=== PATIENT | male | born 1935 | race Caucasian/White ===

== ENCOUNTER 2018-03-23 13:52 | Outpatient (CLI) | payer MEDICARE, SELFPAY ==
[2018-03-23 14:31] LABS: Abs Immature Grans 0.01 k/cumm (0.0-0.09); Absolute Basophil Count 0.04 k/cumm (0.0-0.2); Absolute Eosinophil Count 0.32 k/cumm (0.0-0.7); Absolute Lymphocyte Count 2.04 k/cumm (1.2-3.4); Absolute Monocyte Count 0.54 k/cumm (0.11-0.7); Absolute Neutrophil Count 4.83 k/cumm (1.2-6.7); Basophils % 0.5; Eosinophils % 4.1; HCT 40.7 % (40.0-50.0); HGB 13.7 g/dL (13.5-17.5); Immature Grans % 0.1; Lymphocytes % 26.2; Mean Corp. HGB Concentration 33.7 g/dL (32.0-36.0); Mean Corpuscular Hemoglobin 29.4 pg (27.0-33.0); Mean Corpuscular Volume 87.3 fL (80-95); Mean Platelet Volume 10.5 fL (8.0-11.0); Monocytes % 6.9; Neutrophils % 62.2; Platelet Count 221 x1000/uL (130-400); RBC 4.66 m/cumm (4.50-6.00); RBC Distribution Width 13.1 % (11.8-14.1); White Blood Cell Count 7.78 k/cumm (4.4-10.8)
[2018-03-23 14:43] LABS: ALT 40 U/L (12-78); AST 23 U/L (15-37); Albumin 3.6 g/dL (3.4-5.0); Alkaline Phosphatase 70 U/L (46-116); BUN 21 mg/dL (7-18); Bilirubin, Total 0.4 mg/dL (0.2-1.0); CREATININE 1.03 mg/dL (0.70-1.30); Calcium 8.9 mg/dL (8.5-10.1); Chloride 101 mmol/L (98-107); Glucose 141 mg/dL (70-100); LDH 171 U/L (85-227); Potassium 4.2 mmol/L (3.5-5.1); Sodium 137 mmol/L (136-145); Total Protein 6.7 g/dL (6.4-8.2)
== END 2018-03-23 14:12 ==
PROVIDERS: PCP Family Medicine; Visit Provider Internal Medicine Hematology & Oncology
DX: C85.80 Other specified types of non-Hodgkin lymphoma, unspecified site (principal)
CPT/HCPCS: 36415; 80053; 83615; 85025

== ENCOUNTER 2018-05-15 07:32 | Outpatient (CLI) | payer MEDICARE, SELFPAY ==
[2018-05-15 08:15] LABS: Hemoglobin A1C 7.5 % (4.5-6.2)
[2018-05-15 09:35] LABS: COMMENT (LAB VIEW ONLY) 142.46 mg/dL; Microalb ug/mg Crea 9.2 ug/mg Cr
[2018-05-15 09:39] LABS: ALT 32 U/L (12-78); AST 20 U/L (15-37); Albumin 3.8 g/dL (3.4-5.0); Alkaline Phosphatase 72 U/L (46-116); Anion Gap 11.4 mmol/L (3-11); BUN 25 mg/dL (7-18); Bilirubin, Total 0.4 mg/dL (0.2-1.0); CO2 25.6 mmol/L (21.0-32.0); CREATININE 1.23 mg/dL (0.70-1.30); Calcium 9.1 mg/dL (8.5-10.1); Chloride 106 mmol/L (98-107); Estimated GFR 56.48 (mL/min/1.73m2); Glucose 93 mg/dL (70-100); Potassium 4.3 mmol/L (3.5-5.1); Sodium 143 mmol/L (136-145); Total Protein 6.5 g/dL (6.4-8.2)
== END 2018-05-15 07:52 ==
PROVIDERS: PCP Family Medicine; Visit Provider Family Medicine
DX: E11.9 Type 2 diabetes mellitus without complications (principal); I10 Essential (primary) hypertension
CPT/HCPCS: 36415; 80053; 82043; 82570; 83036

== ENCOUNTER 2018-09-18 02:17 | Outpatient (CLI) | payer MEDICARE, SELFPAY ==
--- NOTE | 2018-09-18 10:30 | MERGE_ITS ---
*[facility]* *[facility]* [address] [place] [address] Date of study: 09/18/2018 Transthoracic Echocardiography M-mode, complete 2D, complete spectral Doppler, and color Doppler *STUDY CONCLUSIONS* Summary: 1. Left ventricle: The cavity size was normal. Wall thickness was increased in a pattern of mild LVH. Systolic function was normal. The estimated ejection fraction was 60-65%. Wall motion was normal; there were no regional wall motion abnormalities. 2. Right ventricle: The cavity size was normal. Systolic function was normal. 3. Left atrium: The atrium was moderately dilated. 4. Aortic valve: Trileaflet; moderately thickened, moderately calcified leaflets. Valve mobility was restricted. Transvalvular velocity was increased. There was mild stenosis. There was trivial regurgitation. Peak velocity (S): 2.8m/sec. VTI ratio of LVOT to aortic valve: 0.4. *PATIENT PRESENTATION* Height: 182.9cm ((72in) ) S/D Pressure: 157 / 83 Weight: 98kg ((215.5lb) ) BSA: 2.25m^2 Test start time: 10:30 AM. Test stop time: 11:40 AM. PERFORMING Unknown ORDERING Andrew Moseley REFERRING Andrew Moseley Brigitte F PERFORMING [facility] PACKAGE SORTER RT González (R)(CT)ROXY *PROCEDURE DATA* Procedure information: The patient was identified by two identifiers. This study was interpreted by [facility]. Pertinent images and digital data are archived for permanent storage and are available for subsequent review. Comparison was made to the study of 07/17/2016. Study status: Routine. Transthoracic echocardiography. M-mode, complete 2D, complete spectral Doppler, and color Doppler. A Transthoracic Echocardiogram was performed. Scanning was performed from the parasternal, apical, subcostal, and suprasternal notch acoustic windows. Images were obtained using an [id number] cardiac ultrasound machine. Image quality was adequate. Study completion: The patient tolerated the procedure well. There were no complications. 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 *CARDIAC ANATOMY* Left ventricle: The cavity size was normal. Wall thickness was increased in a pattern of mild LVH. Systolic function was normal. The estimated ejection fraction was 60-65%. Wall motion was normal; there were no regional wall motion abnormalities. Findings consistent with diastolic dysfunction. There was no evidence of elevated ventricular filling pressure by Doppler parameters. Aortic valve: Trileaflet; moderately thickened, moderately calcified leaflets. Valve mobility was restricted. Doppler: Transvalvular velocity was increased. There was mild stenosis. There was trivial regurgitation. VTI ratio of LVOT to aortic valve: 0.4. Valve area (VTI): 1.6cm^2. Indexed valve area (VTI): 0.7cm^2/m^2. Peak velocity ratio of LVOT to aortic valve: 0.41. Valve area (Vmax): 1.7cm^2. Indexed valve area (Vmax): 0.7cm^2/m^2. Mean velocity ratio of LVOT to aortic valve: 0.41. Valve area (Vmean): 1.7cm^2. Indexed valve area (Vmean): 0.7cm^2/m^2. Mean gradient (S): 20mm Hg. Peak gradient (S): 31.8mm Hg. Aorta: Aortic root: The aortic root was at upper normal limits. Ascending aorta: The ascending aorta was mildly dilated (40 mm). Mitral valve: Mildly thickened leaflets. Mobility was not restricted. Doppler: Transvalvular velocity was within the normal range. There was no evidence for stenosis. There was mild regurgitation. Valve area by pressure half-time: 2.6cm^2. Indexed valve area by pressure half-time: 1.2cm^2/m^2. Peak gradient (D): 2.5mm Hg. Left atrium: The atrium was moderately dilated. Right ventricle: The cavity size was normal. Systolic function was normal. Pulmonic valve: The pulmonary valve appears to be grossly normal. Doppler: Transvalvular velocity was within the normal range. There was no evidence for stenosis. There was trivial regurgitation. Tricuspid valve: Structurally normal valve. Doppler: Transvalvular velocity was within the normal range. There was no evidence for stenosis. There was mild regurgitation. Pulmonary artery: Poorly visualized. Pulmonary systolic pressure was within the normal range, in the range of 25mm Hg to 30mm Hg. Right atrium: The atrium was dilated. Pericardium: There was no pericardial effusion. Systemic veins: Inferior vena cava: Not well visualized. The vessel was normal in size. The respirophasic diameter changes were in the normal range (greater than or equal to 50%), consistent with normal central venous pressure. Baseline ECG: Bradycardia. Measurements Left ventricle Value 07/17/2016 Reference LV ID, ED, PLAX 5.2 cm 4.6 3.5 - 6.0 LV ID, ES, PLAX 3.4 cm 3.3 2.1 - 4.0 LV PW thickness, ED, PLAX 1.3 cm 1.5 LV end-diastolic volume, 117 ml 1-p A2C LV ejection fraction, 1-p 62 % 54 A2C LV end-diastolic volume, 123 ml 1-p A4C LV ejection fraction, 1-p 64 % 55 A4C LV e', lateral 0.055 m/sec LV E/e', lateral 14 LV e', medial 0.051 m/sec LV E/e', medial 16 LV e', average 0.053 m/sec LV E/e', average 15 Ventricular septum Value 07/17/2016 Reference IVS thickness, ED, PLAX 1.3 cm 1.5 LVOT Value 07/17/2016 Reference LVOT ID, A-P 2.3 cm 2.3 LVOT area 4.1 cm^2 4 LVOT peak velocity, S 1.16 m/sec 1.16 LVOT mean velocity, S 0.87 m/sec LVOT VTI, S 28.2 cm 30.0 LVOT peak gradient, S 5.4 mm Hg 5.4 LVOT mean gradient, S 3.4 mm Hg 3 Stroke volume (SV), LVOT 115 ml DP Stroke index (SV/bsa), 51 ml/m^2 LVOT DP Aortic valve Value 07/17/2016 Reference Aortic valve peak 2.8 m/sec 2.5 velocity, S Aortic valve mean 2.14 m/sec velocity, S Aortic valve VTI, S 70.0 cm Aortic mean gradient, S 20 mm Hg Aortic peak gradient, S 31.8 mm Hg 25.6 VTI ratio, LVOT/AV 0.4 0.45 Aortic valve area, VTI 1.6 cm^2 Velocity ratio, peak, 0.41 0.46 LVOT/AV Aortic valve area, peak 1.7 cm^2 velocity Velocity ratio, mean, 0.41 LVOT/AV Aortic valve area, mean 1.7 cm^2 velocity Aortic valve area/bsa, 0.7 cm^2/m^2 mean velocity Aorta Value 07/17/2016 Reference Aortic root ID, ED 3.9 cm Ascending aorta ID, A-P, S 4.0 cm 4.1 Left atrium Value 07/17/2016 Reference LA ID, A-P, ES 4.5 cm LA ID/bsa, A-P 2.0 cm/m^2 <=2.2 LA area, ES, A4C (H) 29.8 cm^2 31 8.8 - 23.4 LA area, ES, A2C 23 cm^2 LA volume/bsa, ES, 1-p A4C 50 ml/m^2 56 LA volume, ES, 2-p 87 ml LA volume/bsa, ES, 2-p 39 ml/m^2 LA/aortic root ratio 1.14 1.32 Mitral valve Value 07/17/2016 Reference Mitral E-wave peak 0.78 m/sec 0.72 velocity Mitral A-wave peak 1.11 m/sec 0.91 velocity Mitral deceleration time (H) 290 ms 150 - 230 Mitral pressure half-time 84 ms 105 Mitral peak gradient, D 2.5 mm Hg 2 Mitral E/A ratio, peak 0.71 0.78 Mitral valve area, PHT, DP 2.6 cm^2 Mitral peak LV-LA 129.8 mm Hg 94.3 gradient, S Mitral maximal regurg 5.7 m/sec 4.86 velocity, PISA Mitral regurg VTI, PISA 199.1 cm 228.3 Pulmonary veins Value 07/17/2016 Reference Pulmonary vein peak 0.38 m/sec 0.32 velocity, S Pulmonary vein peak 0.46 m/sec 0.4 velocity, D Pulmonary vein velocity 0.84 0.78 ratio, peak, S/D Tricuspid valve Value 07/17/2016 Reference Tricuspid regurg peak 2.5 m/sec 2.4 velocity Tricuspid peak RV-RA 25.6 mm Hg 22.5 gradient Right atrium Value 07/17/2016 Reference RA area, ES, A4C (H) 23.2 cm^2 24 8.3 - 19.5 Legend: (L) and (H) himanshu values outside specified reference range. I have personally reviewed the images and have reviewed and edited the reported findings. Electronically signed by Remedios Lorenzo 09/18/2018 12:11
== END 2018-09-18 02:37 ==
PROVIDERS: PCP Family Medicine; Visit Provider Student in an Organized Health Care Education/Training Program
DX: I35.0 Nonrheumatic aortic (valve) stenosis (principal); I10 Essential (primary) hypertension
CPT/HCPCS: 93306

== ENCOUNTER → 2018-09-23 14:17 | Outpatient (BNVA) | payer MEDICARE, SELFPAY | PROVIDERS: PCP Family Medicine; Visit Provider Student in an Organized Health Care Education/Training Program | DX: I35.0 Nonrheumatic aortic (valve) stenosis (principal); E11.9 Type 2 diabetes mellitus without complications; Z79.4 Long term (current) use of insulin; I10 Essential (primary) hypertension | CPT/HCPCS: 99214 ==

== ENCOUNTER 2018-11-13 08:17 | Outpatient (CLI) | payer MEDICARE, SELFPAY ==
[2018-11-13 09:04] LABS: Hemoglobin A1C 7.5 % (4.5-6.2)
[2018-11-13 09:45] LABS: ALT 41 U/L (12-78); AST 24 U/L (15-37); Albumin 3.8 g/dL (3.4-5.0); Alkaline Phosphatase 66 U/L (46-116); Anion Gap 12.1 mmol/L (3-11); BUN 24 mg/dL (7-18); Bilirubin, Total 0.6 mg/dL (0.2-1.0); CO2 24.9 mmol/L (21.0-32.0); CREATININE 1.08 mg/dL (0.70-1.30); Calcium 9.1 mg/dL (8.5-10.1); Chloride 106 mmol/L (98-107); Glucose 127 mg/dL (70-100); Potassium 4.8 mmol/L (3.5-5.1); Sodium 143 mmol/L (136-145); Total Protein 6.4 g/dL (6.4-8.2); Uric Acid 4.7 mg/dL (3.5-7.2)
[2018-11-13 10:00] LABS: Calculated LDL 73; Cholesterol 149 mg/dL (50-200); HDL Cholesterol 65 mg/dL (40-60); Triglyceride 55 mg/dL (30-150)
== END 2018-11-13 08:37 ==
PROVIDERS: PCP Family Medicine; Visit Provider Family Medicine
DX: M10.9 Gout, unspecified (principal); E11.9 Type 2 diabetes mellitus without complications; I10 Essential (primary) hypertension; E78.5 Hyperlipidemia, unspecified
CPT/HCPCS: 36415; 80053; 80061; 83721; 83036; 84550

== ENCOUNTER 2018-12-01 07:25 | Outpatient (CLI) | payer MEDICARE, SELFPAY ==
[2018-12-02 12:50] LABS: Lyme Ab w Rflx to Lyme Confirm Negative
== END 2018-12-01 07:45 ==
PROVIDERS: PCP Family Medicine; Visit Provider Family Medicine
DX: W57.XXXA Bitten or stung by nonvenomous insect and other nonvenomous arthropods, initial encounter (principal); T14.8XXA Other injury of unspecified body region, initial encounter
CPT/HCPCS: 36415; 86618

== ENCOUNTER 2018-12-01 09:31 | Outpatient (REF) | payer MEDICARE, SELFPAY ==
[2018-12-02 11:04] LABS: Campylobacter PCR SEE COMMENTS; Salmonella PCR SEE COMMENTS; Shiga Toxin PCR SEE COMMENTS; Shigella/Enteroinvasive Ecoli SEE COMMENTS
== END 2018-12-01 09:51 ==
LOC: LBN 09:31
PROVIDERS: PCP Family Medicine; Visit Provider Family Medicine
DX: R19.7 Diarrhea, unspecified (principal)
CPT/HCPCS: 87505; 82272; 87324

== ENCOUNTER 2019-01-11 16:40 | Outpatient (CLI) | payer MEDICARE, SELFPAY ==
[2019-01-11 16:56] LABS: Abs Immature Grans 0.01 k/cumm (0.0-0.09); Absolute Basophil Count 0.03 k/cumm (0.0-0.2); Absolute Eosinophil Count 0.07 k/cumm (0.0-0.7); Absolute Lymphocyte Count 1.16 k/cumm (1.2-3.4); Absolute Monocyte Count 0.57 k/cumm (0.11-0.7); Absolute Neutrophil Count 3.69 k/cumm (1.2-6.7); Basophils % 0.5; Eosinophils % 1.3; HCT 42.3 % (40.0-50.0); HGB 14.5 g/dL (13.5-17.5); Immature Grans % 0.2; Mean Corp. HGB Concentration 34.3 g/dL (32.0-36.0); Mean Corpuscular Hemoglobin 29.5 pg (27.0-33.0); Mean Corpuscular Volume 86.2 fL (80-95); Mean Platelet Volume 10.5 fL (8.0-11.0); Monocytes % 10.3; Neutrophils % 66.7; Platelet Count 185 x1000/uL (130-400); RBC 4.91 m/cumm (4.50-6.00); RBC Distribution Width 13.2 % (11.8-14.1); White Blood Cell Count 5.53 k/cumm (4.4-10.8)
[2019-01-11 18:21] LABS: ALT 75 U/L (12-78); AST 57 U/L (15-37); Albumin 3.6 g/dL (3.4-5.0); Alkaline Phosphatase 125 U/L (46-116); Anion Gap 11.9 mmol/L (3-11); BUN 25 mg/dL (7-18); Bilirubin, Total 0.7 mg/dL (0.2-1.0); CO2 25.1 mmol/L (21.0-32.0); Calcium 8.9 mg/dL (8.5-10.1); Chloride 99 mmol/L (98-107); Estimated GFR 52.85 (mL/min/1.73m2); Glucose 139 mg/dL (70-100); Potassium 4.4 mmol/L (3.5-5.1); Sodium 136 mmol/L (136-145); Total Protein 6.8 g/dL (6.4-8.2)
== END 2019-01-11 17:00 ==
PROVIDERS: PCP Family Medicine
DX: R50.9 Fever, unspecified (principal); R53.1 Weakness; R53.83 Other fatigue
CPT/HCPCS: 36415; 80053; 85025

== ENCOUNTER 2019-01-12 13:01 | Emergency (ER) | payer MEDICARE, SELFPAY ==
[2019-01-12] VITALS (23 sets, daily range): BP systolic 95–134; BP diastolic 7–82; PULSE 75–94; RESP 14–25; TEMP 36.6; O2SAT 92–97
[2019-01-12] MEDS: Normal Saline 1,000 ML 1000 ML IV (13:20)
--- NOTE | 2019-01-12 13:23 | DI.CT_ITS ---
SYMPTOMS/DIAGNOSIS: SYNCOPE, ? ACUTE CEREBROVASCULAR ACCIDENT CRANIAL CT: Noncontrast cranial CT was performed. There is moderate generalized cerebral atrophy. There is no evidence of acute intracranial hemorrhage, mass effect or midline shift. The orbital and temporal bone structures appear intact. Paranasal sinuses and mastoid air cells are generally clear as visualized except for minimal mucoperiosteal thickening in the ethmoid air cells. CONCLUSION: No evidence of acute intracranial process.
--- NOTE | 2019-01-12 13:24 | DI.RAD_ITS ---
SYMPTOMS/DIAGNOSIS: FATIGUE, ? ACUTE DISEASE PA AND LATERAL CHEST: The heart is at the upper limits of normal in size. The lungs appear clear. No pleural effusion seen. CONCLUSION: No evidence of acute process.
--- NOTE | 2019-01-12 13:26 | W.ED.GENAD ---
Discharge Plan Disposition Patient Disposition: HOME Condition: Improving Discharge Details Chief Complaint: Dizzy/Sync Clinical Impression: Syncope, Dehydration Primary Care Provider: Lolis Meléndez ED Provider: Kandice Hernandez Home Meds and New Rx's Prescriptions: Continued Lantus Solostar U-100 Insulin 100 unit/mL (3 mL) insulin pen 26 unit subcut DAILY RF: 0 vitamin E (dl, acetate) 1,000 UNIT capsule 1,000 unit PO DAILY RF: 0 (DME) pen needle, diabetic [BD Ultra-Fine Bridget Pen Needle] 32 gauge x 5/32 needle 1 ea Miscellaneous DAILY Qty: 100 RF: 3 lisinopril [Zestril] 10 mg tablet 10 mg PO DAILY Qty: 90 RF: 4 metformin [Glucophage] 1,000 mg tablet 1,000 mg PO BID Qty: 180 RF: 4 allopurinol [Zyloprim] 100 mg tablet 100 mg PO DAILY Qty: 90 RF: 4 atorvastatin [Lipitor] 40 mg tablet 40 mg PO DAILY Qty: 90 RF: 4 tamsulosin 0.4 mg capsule 0.8 mg PO DAILY Qty: 180 RF: 3 lorazepam 1 mg tablet 1 mg PO HS PRN (Reason: sleep) Qty: 25 RF: 0 Discharge Instructions Instructions: Dehydration (ED), Syncope (ED) Additional Instructions: Return the house decorator care as indicated by respiratory therapy. Drink plenty fluids and get plenty of rest. Follow-up with your primary care doctor within the next week for reevaluation. Return immediately to the emergency department if you develop any worsening or new concerning symptoms. Discharge Data Discharge Date/Time-TO BE ENTERED AT DEPARTURE: 01/12/19 17:40 Discharge Physician: Kandice Hernandez Medical Decision Making 83-year-old male with history of diabetes, lymphoma, hypertension, gout who presents after syncopal episode at a restaurant this morning. Patient states he stood up began walking and sat down and passed out. Denies any injury. He admits to intermittent fever and chills over the past few days, T-max 100.7. He admits to sweating this morning. He has a history of chronic diarrhea for the last few months. He saw his primary care doctor yesterday and was diagnosed with dehydration but declined treatment at that time. Vitals within normal limits. Patient orthostatic with blood pressure upon check. Patient appears generally fatigued but no focal deficits. Lungs clear, abdomen soft and nontender. Differential diagnosis includes dehydration, electrolyte abnormality, UTI, pneumonia. Will place an IV, bolus IV fluids, screening labs, urinalysis and chest x-ray and CT head. As he has no complaint of chest pain, shortness of breath, abdominal pain or tenderness, doubt infectious cardiac or abdominal causes as source of fever. EKG noted a rate of 80 with first-degree block and sinus with no acute ST ischemic changes. Labs and imaging reviewed. Normal white blood cell count. Creatinine 1.41 and GFR 48, which appears consistent likely with mild dehydration. Magnesium 1.5, will replete. Troponin negative. Lipase negative. Urinalysis negative for infection. CT head and chest x-ray negative. Patient states he feels much better and is requesting to go home. He was able to ambulate around the ED and declined any dizziness. EMS had initially reported that patient had a heart rate of 180s which did not appear accurate on the strip and did not immediately upon arrival to the ED heart rate was noted to be 70s and 80s so I do not think this is accurate. Patient's previous EKG does not note a first-degree block. Due to patient's complaint of syncope today, will place a Holter monitor. Patient advised to follow-up with his primary care doctor for reevaluation and to return here anytime if worse. Medical Records Medical records reviewed: Yes I reviewed the patient's medical records. Imaging Data Radiologic Study: Radiologist's impression: CRANIAL CT: Noncontrast cranial CT was performed. There is moderate generalized cerebral atrophy. There is no evidence of acute intracranial hemorrhage, mass effect or midline shift. The orbital and temporal bone structures appear intact. Paranasal sinuses and mastoid air cells are generally clear as visualized except for minimal mucoperiosteal thickening in the ethmoid air cells. CONCLUSION: No evidence of acute intracranial process. PA AND LATERAL CHEST: The heart is at the upper limits of normal in size. The lungs appear clear. No pleural effusion seen. CONCLUSION: No evidence of acute process. Lab Data Lab results reviewed: Yes I reviewed the patient's lab results. Laboratory Tests Range/Units 01/12/19 01/12/19 01/12/19 13:25 13:25 15:45 WBC (4.4-10.8) k/cumm 6.34 RBC (4.50-6.00) m/cumm 4.49 L Hgb (13.5-17.5) g/dL 13.1 L Hct (40.0-50.0) % 38.7 L MCV (80-95) fL 86.2 MCH (27.0-33.0) pg 29.2 MCHC (32.0-36.0) g/dL 33.9 RDW (11.8-14.1) % 12.8 Plt Count (130-400) x1000/uL 184 MPV (8.0-11.0) fL 10.1 Immature Gran % 0.0 Neutrophils % 64.3 Lymphocytes % 22.6 Monocytes % 11.5 Eosinophils % 1.3 Basophils % 0.3 Absolute Neutrophils (1.2-6.7) k/cumm 4.08 Absolute Lymphocytes (1.2-3.4) k/cumm 1.43 Absolute Monocytes (0.11-0.7) k/cumm 0.73 H Absolute Eosinophils (0.0-0.7) k/cumm 0.08 Absolute Basophils (0.0-0.2) k/cumm 0.02 Sodium (136-145) mmol/L 136 Potassium (3.5-5.1) mmol/L 3.9 Chloride (98-107) mmol/L 100 Carbon Dioxide (21.0-32.0) mmol/L 25.3 Anion Gap (3-11) mmol/L 10.7 BUN (7-18) mg/dL 26 H Creatinine (0.70-1.30) mg/dL 1.41 H Estimated GFR/1.73 m2 (mL/min/1.73m2) 48.12 Glucose (70-100) mg/dL 164 H Calcium (8.5-10.1) mg/dL 8.5 Magnesium (1.8-2.4) mg/dL 1.5 L Total Bilirubin (0.2-1.0) mg/dL 0.8 AST (15-37) U/L 45 H ALT (12-78) U/L 70 Alkaline Phosphatase (46-116) U/L 118 H Troponin I (0.00-0.06) ng/mL < 0.05 Total Protein (6.4-8.2) g/dL 6.7 Albumin (3.4-5.0) g/dL 3.2 L Lipase (73-393) U/L 118 Urine Color (Yellow) Yellow Urine Clarity (Clear) Clear Urine pH (5-8) 5.0 Ur Specific [place] (1.005-1.025) 1.010 Urine Protein (Negative) mg/dL Negative Urine Ketones (Negative) mg/dL Negative Urine Blood (Negative) Negative Urine Nitrite (Negative) Negative Urine Bilirubin (Negative) Negative Urine Urobilinogen (Up TO 0.2) EU/dL 0.2 Ur Leukocyte Esterase (Negative) Negative Urine Glucose (Negative) mg/dL Negative ECG Data Attestation: I personally reviewed and interpreted this ECG (s) as follows: Interpretation: Rate of 80, sinus, first-degree block with HI of 288. QTc 443. QRS 100. No acute ST elevation or depression. HPI General Mode of arrival: ambulatory. Date/Time Provider Initiated Documentation: 01/12/19 13:03. Limitations to Documentation: no limitations. Information obtained by: patient and family. HPI Narrative: Pt is a 83-year-old male with history of diabetes, lymphoma, hypertension, gout who presents after syncopal episode at a restaurant this morning. Patient states he stood up and began walking and sat down and passed out. Denies any injury. He admits to intermittent fever and chills over the past few days, T-max 100.7. He admits to sweating this morning. He has a history of chronic diarrhea for the last few months and states it has been mainly loose but denies any bleeding. He saw his primary care doctor yesterday and was diagnosed with dehydration but declined treatment at that time. He denies headache, dizziness, chest pain, shortness of breath, abdominal pain, nausea, vomiting, urinary symptoms or recent antibiotics. He admits to decreased appetite recently. Related Data Home Medications Medication Instructions Recorded Confirmed vitamin E (dl, acetate) 1,000 unit PO DAILY 08/05/17 01/11/19 pen needle, diabetic 32 gauge x #100 ndl 02/17/18 01/11/19 lisinopril 10 mg tablet 10 mg PO DAILY #90 tab 08/20/18 01/11/19 metformin 1,000 mg tablet 1,000 mg PO BID #180 tab 08/20/18 01/11/19 allopurinol 100 mg tablet 100 mg PO DAILY #90 tab 10/01/18 01/11/19 atorvastatin 40 mg tablet 40 mg PO DAILY #90 tab 10/01/18 01/11/19 tamsulosin 0.4 mg capsule 0.8 mg PO DAILY #180 tab-cap 12/29/18 01/11/19 lorazepam 1 mg tablet 1 mg PO HS PRN #25 tab-cap 12/30/18 01/11/19 insulin glargine 100 unit/mL (3 26 unit SUBCUT DAILY ml 01/11/19 mL) subcutaneous pen Previous Rx's Medication Instructions Recorded pen needle, diabetic 32 gauge x #100 ndl 02/17/18 lisinopril 10 mg tablet 10 mg PO DAILY #90 tab 08/20/18 metformin 1,000 mg tablet 1,000 mg PO BID #180 tab 08/20/18 allopurinol 100 mg tablet 100 mg PO DAILY #90 tab 10/01/18 atorvastatin 40 mg tablet 40 mg PO DAILY #90 tab 10/01/18 tamsulosin 0.4 mg capsule 0.8 mg PO DAILY #180 tab-cap 12/29/18 lorazepam 1 mg tablet 1 mg PO HS PRN #25 tab-cap 12/30/18 Allergies Allergy/AdvReac Type Severity Reaction Status Date / Time oxycodone HCl AdvReac GI UPSET Verified 01/11/19 14:44 [From OxyContin] General Stated Complaint: Dizzy/Sync STANLEY: 2 Review of Systems Review of Systems All systems reviewed & are unremarkable except as noted in HPI and below Constitutional Reports as per HPI, Denies chills, Reports excessive sweating and Denies fever(s) Eyes Denies blurry vision ENT Denies dizziness, Denies sore throat and Denies throat swelling Cardiovascular Denies chest pain, Reports syncope and Denies dyspnea Respiratory Denies cough and Denies dyspnea Gastrointestinal Denies abdominal pain, Reports diarrhea and Denies vomiting Genitourinary Denies hematuria and Denies dysuria Musculoskeletal Denies back pain and Denies numbness Integumentary/Breasts Denies lesions and Denies rash Neurologic Denies dizziness, Reports syncope, Denies focal weakness and Denies numbness Endocrine Reports excessive sweating Allergic/Immunologic Denies throat swelling [facility] Medical History Diabetes mellitus Fatigue (Acute) Skin lesion of back (Acute) Weakness (Acute) Family History Mother Heart disease Father Diabetes Essential hypertension Lung cancer Sister Essential hypertension Hyperlipidemia Cancer Brother Diabetes Hyperlipidemia Cancer Brother No problems noted. Maternal Grandfather No problems noted. Paternal Grandfather No problems noted. Maternal Grandmother No problems noted. Paternal Grandmother Cancer Son No problems noted. Son No problems noted. Son No problems noted. Social History (Updated 05/20/18 @ 08:29 by Damaris Armenta) Smoking/Tobacco Use Status: Never Alcohol Intake: current Alcohol Intake frequency: holidays/special occasions only Alcohol type: beer Drug use: Never Substance use type: does not use Duration: 30-45 minutes/day Jenny/Jew: Buddhist Special jenny needs: No Do you feel safe in your relationship?: Yes Exam Const General: cooperative, healthy appearing and no acute distress HENMT Head: normal to inspection Face and sinus: normal facial exam Eyes General: appearance normal, both eyes and all related structures Pupils: PERRL EOM: EOM intact bilaterally Neck Neck: normal visual inspection and No submandibular swelling Lymphatic: no lymphadenopathy noted Chest Chest: normal inspection of the chest and no tenderness Resp Effort & Inspection: normal respiratory effort and able to speak in complete sentences Auscultation: clear to auscultation bilaterally Cardio Rate: regular rate Rhythm: regular rhythm GI Inspection: normal to inspection Palpation: soft, not firm, not rigid and nontender Auscultation: normal bowel sounds Back/Spine/Pelvis Pelvis: no pain with anterior-posterior compression Skin General skin exam: no rashes or lesions noted Neuro General: alert, awake and oriented x3 Cranial Nerves: CN's II-XI intact bilaterally Cognition: normal cognition Speech: speech normal Motor: muscle tone normal throughout and strength 5/5 throughout Sensory Exam: no sensory deficits noted Extrem General: normal to inspection, full ROM, normal capillary refill, no calf tenderness bilaterally and no edema Psych Appearance: grossly normal Mental Status: mental status grossly normal Speech and Movement: speech and movement normal Affect: normal affect Course Vital Signs Temperature 97.9 F 01/12/19 13:08 Pulse 76 01/12/19 13:08 Respiratory Rate 16 01/12/19 13:08 Blood Pressure 126/7 L 01/12/19 13:08 Pulse Oximetry 96 01/12/19 13:08 Temperature 97.9 F 01/12/19 13:08 Temperature Source Skin 01/12/19 13:08 Pulse 76 01/12/19 13:08 Respiratory Rate 16 01/12/19 13:08 Respiratory Effort Non-Labored 01/12/19 13:12 Blood Pressure 126/7 L 01/12/19 13:08 Blood Pressure Position Supine 01/12/19 13:08 Pulse Oximetry 96 01/12/19 13:08 Oxygen Delivery Method Room Air 01/12/19 13:08 Oxygen Flow Rate 0 01/12/19 13:08
[2019-01-12 13:32] LABS: Absolute Basophil Count 0.02 k/cumm (0.0-0.2); Absolute Eosinophil Count 0.08 k/cumm (0.0-0.7); Absolute Lymphocyte Count 1.43 k/cumm (1.2-3.4); Absolute Monocyte Count 0.73 k/cumm (0.11-0.7); Absolute Neutrophil Count 4.08 k/cumm (1.2-6.7); Basophils % 0.3; Eosinophils % 1.3; HCT 38.7 % (40.0-50.0); HGB 13.1 g/dL (13.5-17.5); Lymphocytes % 22.6; Mean Corp. HGB Concentration 33.9 g/dL (32.0-36.0); Mean Corpuscular Hemoglobin 29.2 pg (27.0-33.0); Mean Corpuscular Volume 86.2 fL (80-95); Mean Platelet Volume 10.1 fL (8.0-11.0); Monocytes % 11.5; Neutrophils % 64.3; Platelet Count 184 x1000/uL (130-400); RBC 4.49 m/cumm (4.50-6.00); RBC Distribution Width 12.8 % (11.8-14.1); White Blood Cell Count 6.34 k/cumm (4.4-10.8)
[2019-01-12 13:56] LABS: ALT 70 U/L (12-78); AST 45 U/L (15-37); Albumin 3.2 g/dL (3.4-5.0); Alkaline Phosphatase 118 U/L (46-116); Anion Gap 10.7 mmol/L (3-11); BUN 26 mg/dL (7-18); Bilirubin, Total 0.8 mg/dL (0.2-1.0); CO2 25.3 mmol/L (21.0-32.0); CREATININE 1.41 mg/dL (0.70-1.30); Calcium 8.5 mg/dL (8.5-10.1); Chloride 100 mmol/L (98-107); Estimated GFR 48.12 (mL/min/1.73m2); Glucose 164 mg/dL (70-100); Lipase 118 U/L (73-393); Magnesium 1.5 mg/dL (1.8-2.4); Potassium 3.9 mmol/L (3.5-5.1); Sodium 136 mmol/L (136-145); Total Protein 6.7 g/dL (6.4-8.2)
[2019-01-12 13:57] LABS: Troponin I < 0.05 ng/mL (0.00-0.06)
[2019-01-12] MEDS: Normal Saline 500 ML IV (14:15)
[2019-01-12] MEDS: MAGNESIUM SULFATE 1 GM/100 ML BAG IVPB (15:06)
--- NOTE | 2019-01-12 15:07 | NUR.NOTE ---
Nursing Note: pt resting in stretcher, states that his dizziness is better. states that he is still unable to give a urine sample, but will keep trying.
[2019-01-12 15:58] LABS: Bilirubin Negative (Negative); Blood Negative (Negative); Clarity Clear (Clear); Glucose Negative (Negative); Ketones Negative (Negative); Leukocyte Esterase Negative (Negative); Nitrite Negative (Negative); Urobilinogen 0.2 EU/dL (Up TO 0.2)
== END 2019-01-12 17:40 | disposition home or self-care (01) ==
PROVIDERS: Emergency Provider Physician Assistant; PCP Family Medicine
DX: E86.0 Dehydration (principal); R55 Syncope and collapse; E83.42 Hypomagnesemia; E11.9 Type 2 diabetes mellitus without complications; Z79.4 Long term (current) use of insulin; I10 Essential (primary) hypertension
CPT/HCPCS: 36415; 80053; 83690; 93005; 96361; 96365; 99285; 70450; 71046; 81003; 83735; 84484; 85025; 93010; J3475

== ENCOUNTER 2019-01-29 07:03 | Outpatient (CLI) | payer MEDICARE, SELFPAY ==
[2019-01-29 08:16] LABS: Hemoglobin A1C 7.7 % (4.5-6.2)
[2019-01-29 09:09] LABS: Anion Gap 8.1 mmol/L (3-11); BUN 16 mg/dL (7-18); CO2 28.9 mmol/L (21.0-32.0); CREATININE 1.09 mg/dL (0.70-1.30); Calcium 8.9 mg/dL (8.5-10.1); Chloride 103 mmol/L (98-107); Glucose 94 mg/dL (70-100); Sodium 140 mmol/L (136-145)
[2019-01-29 14:04] LABS: COMMENT (LAB VIEW ONLY) 142.16 mg/dL
== END 2019-01-29 07:23 ==
PROVIDERS: PCP Family Medicine; Visit Provider Family Medicine
DX: E11.9 Type 2 diabetes mellitus without complications (principal)
CPT/HCPCS: 36415; 80048; 82043; 82570; 83036

== ENCOUNTER 2019-02-03 00:43 | Outpatient (CLI) | payer MEDICARE, SELFPAY ==
--- NOTE | 2019-02-03 09:25 | DI.CT_ITS ---
SYMPTOM/DIAGNOSIS: RECENT FATIGUE, SOB, DIARRHEA, H/O LYMPHOMA, C85.[address]: Comparison is made with 06/24/14. Images were performed from the lung bases through the ischial tuberosities after IV and oral contrast. Again noted are multiple enlarged para-aortic, bilateral iliac and celiac axis nodes. There is no significant change in the size of the lymph nodes when compared with the previous exam. The lung bases are clear. No pleural or pericardial effusions are seen. The liver, gallbladder, spleen, pancreas and adrenals are unremarkable. Bilateral renal cysts are again noted. The bladder and prostate are unremarkable. There is no free air or free fluid. There is no bowel dilatation or inflammatory change. Diverticulosis is noted in the descending colon. No suspicious bony lesions are identified. IMPRESSION: Stable size of abdominal and pelvic adenopathy. No new sites of adenopathy or new masses are seen.
[2019-02-03] MEDS: Omnipaque 350 MG/ML 50 ML BTL IJ (09:28)
[2019-02-03] MEDS: Omnipaque 350 MG/ML 100 ML BTL IJ (09:28)
[2019-02-03] MEDS: Breeza Beverage 473 ML BTL PO (09:29)
== END 2019-02-03 01:03 ==
PROVIDERS: PCP Family Medicine; Visit Provider Family Medicine
DX: C85.90 Non-Hodgkin lymphoma, unspecified, unspecified site (principal); R06.02 Shortness of breath; R53.83 Other fatigue; R19.7 Diarrhea, unspecified; R59.0 Localized enlarged lymph nodes
CPT/HCPCS: 74177; J3490; Q9967

== ENCOUNTER 2019-02-04 07:03 | Outpatient (CLI) | payer MEDICARE, SELFPAY ==
[2019-02-04 14:08] LABS: Abs Immature Grans 0.02 k/cumm (0.0-0.09); Absolute Basophil Count 0.03 k/cumm (0.0-0.2); Absolute Eosinophil Count 0.12 k/cumm (0.0-0.7); Absolute Lymphocyte Count 1.56 k/cumm (1.2-3.4); Absolute Neutrophil Count 7.17 k/cumm (1.2-6.7); Basophils % 0.3; Eosinophils % 1.3; HCT 37.5 % (40.0-50.0); Immature Grans % 0.2; Lymphocytes % 16.8; Mean Corpuscular Hemoglobin 28.5 pg (27.0-33.0); Mean Corpuscular Volume 89.1 fL (80-95); Mean Platelet Volume 10.2 fL (8.0-11.0); Monocytes % 4.3; Neutrophils % 77.1; Platelet Count 392 x1000/uL (130-400); RBC 4.21 m/cumm (4.50-6.00); RBC Distribution Width 13.7 % (11.8-14.1)
[2019-02-04 14:52] LABS: C-Reactive Protein 0.44 mg/dL (0.0-0.3)
[2019-02-04 15:11] LABS: ESR 49 mm/hr (1-20)
[2019-02-05 12:51] LABS: Lyme Ab w Rflx to Lyme Confirm Positive
[2019-02-06 22:26] LABS: Anaplasma phagocytophilum Negative (Negative); Ehrlichia chaffeensis Negative (Negative); Ehrlichia ewingii/canis Negative (Negative); Ehrlichia muris eauclairensis Negative (Negative)
[2019-02-08 14:56] LABS: IgG Immunoblot Negative; IgM Immunoblot Positive; Immunoblot Interpretation SEE COMMENTS
== END 2019-02-04 07:23 ==
PROVIDERS: PCP Family Medicine; Visit Provider Family Medicine
DX: R63.4 Abnormal weight loss (principal); R53.83 Other fatigue; R19.7 Diarrhea, unspecified
CPT/HCPCS: 36415; 85652; 86617; 85025; 86140; 86618; 87798

== ENCOUNTER 2019-02-05 07:40 | Outpatient (REF) | payer MEDICARE, SELFPAY ==
[2019-02-06 11:18] LABS: Campylobacter PCR SEE COMMENTS; Salmonella PCR SEE COMMENTS; Shiga Toxin PCR SEE COMMENTS; Shigella/Enteroinvasive Ecoli SEE COMMENTS
== END 2019-02-05 08:00 ==
LOC: LBN 07:40
PROVIDERS: PCP Family Medicine; Visit Provider Family Medicine
DX: R19.7 Diarrhea, unspecified (principal)
CPT/HCPCS: 87329; 87505

== ENCOUNTER 2019-02-12 01:46 | Outpatient (CLI) | payer MEDICARE, SELFPAY ==
--- NOTE | 2019-02-12 13:21 | DI.US_ITS ---
EXAM: US CAROTID CLINICAL HISTORY: syncope and collapse R55. TECHNIQUE: Ultrasound performed using standard protocol. COMPARISON: Cardiac from 09/18/2018 FINDINGS: Mild calcific plaque is noted in both carotid bulbs. There is no evidence of carotid stenosis. Bilat eral antegrade flow is noted in the vertebrals. There is a solid right thyroid nodule which measures 3.5 x 2.1 x 2.2 cm and has some color flow. IMPRESSION: No evidence of carotid stenosis. A right thyroid lobe nodule is demonstrated as described above
--- NOTE | 2019-03-02 12:00 | ZIOP_ITS ---
This was a 2-week ZIO patch ordered for the indication of syncope and collapse. Patient wore device for 12 days and 17 hours. Patient had a minimum heart rate of 24 bpm and a maximum heart rate of 174 bpm average heart rate of 70 bpm The predominant rhythm was sinus though there were 2 brief episodes of second- degree heart block (Mobitz type I). There were no episodes of high second-degree or third-degree heart block. There were rare (less than 1%) supraventricular ectopic beats. There were no couplets or triplets. There was one episode of nonsustained ventricular tachycardia (5 beats) There were rare isolated (less than 1%) ventricular ectopic beats as well as rare couplets and triplets. There were no pauses greater than 3 seconds There were no patient triggered events CC: Dictated by: RIGO ABURTO MD Dictated:: 1200 <Electronically signed by Rigo Aburto M.D.> 03/02/19 1205 Transcribed Date: 03/02/19 Transcribed Time: 1200By: VISHNU
== END 2019-02-12 02:06 ==
PROVIDERS: PCP Family Medicine; Visit Provider Family Medicine
DX: R55 Syncope and collapse (principal); E04.1 Nontoxic single thyroid nodule
CPT/HCPCS: 0296T; 93880

== ENCOUNTER 2019-02-15 01:10 | Outpatient (CLI) | payer MEDICARE, SELFPAY | END 2019-02-15 01:30 | PROVIDERS: PCP Family Medicine; Visit Provider Family Medicine | DX: R55 Syncope and collapse (principal) | CPT/HCPCS: 0296T ==

== ENCOUNTER 2019-03-02 10:34 | Outpatient (CLI) | payer MEDICARE, SELFPAY ==
--- NOTE | 2019-03-02 12:00 | CER_ITS ---
Cardiac Event Recorder Cardiac Event Note: This was a 2-week ZIO patch ordered for the indication of syncope and collapse. Patient wore device for 12 days and 17 hours. Patient had a minimum heart rate of 24 bpm and a maximum heart rate of 174 bpm average heart rate of 70 bpm The predominant rhythm was sinus though there were 2 brief episodes of second- degree heart block (Mobitz type I). There were no episodes of high second-degree or third-degree heart block. There were rare (less than 1%) supraventricular ectopic beats. There were no couplets or triplets. There was one episode of nonsustained ventricular tachycardia (5 beats) There were rare isolated (less than 1%) ventricular ectopic beats as well as rare couplets and triplets. There were no pauses greater than 3 seconds There were no patient triggered events
[2019-03-02 12:52] LABS: TSH 2.13 uIU/mL (0.36-3.74)
[2019-03-02 17:46] LABS: T3, Total 124 ng/dl (97-169)
== END 2019-03-02 10:54 ==
PROVIDERS: PCP Family Medicine; Visit Provider Family Medicine
DX: E04.1 Nontoxic single thyroid nodule (principal); G47.00 Insomnia, unspecified; R55 Syncope and collapse; I44.1 Atrioventricular block, second degree; I47.2 Ventricular tachycardia
CPT/HCPCS: 0298T; 36415; 84439; 84443; 84480

== ENCOUNTER 2019-03-16 01:26 | Outpatient (CLI) | payer MEDICARE, SELFPAY ==
--- NOTE | 2019-03-16 14:36 | DI.US_ITS ---
EXAM: US LOWER EXTREMITY VENOUS LT US LOWER EXTREMITY VENOUS LT CLINICAL HISTORY: persistentankle/leg swelling-dx Lyme -/no pain. persistentankle/leg swelling-dx Lyme 02-11/no pain TECHNIQUE: Lower extremity venous ultrasound performed using grayscale, color-flow, and spectral Dop pler analysis. COMPARISON: No exams were available for comparison FINDINGS: The common femoral, femoral and popliteal veins demonstrate normal compressibility, augmentation, and color Doppler. The posterior tibial veins are patent. The saphenous vein appears free of thrombus. No Buck's cyst or hematoma is seen. IMPRESSION: No evidence of DVT.
== END 2019-03-16 01:46 ==
PROVIDERS: PCP Family Medicine; Visit Provider Family Medicine
DX: M79.89 Other specified soft tissue disorders (principal); R22.42 Localized swelling, mass and lump, left lower limb
CPT/HCPCS: 93971

== ENCOUNTER → 2019-04-02 10:55 | Outpatient (BNVA) | payer MEDICARE, SELFPAY | PROVIDERS: PCP Family Medicine; Referring Provider Family Medicine; Visit Provider Internal Medicine Cardiovascular Disease | DX: I35.0 Nonrheumatic aortic (valve) stenosis (principal); I10 Essential (primary) hypertension; R60.0 Localized edema; R55 Syncope and collapse; E11.9 Type 2 diabetes mellitus without complications; Z79.4 Long term (current) use of insulin | CPT/HCPCS: 99214 ==

== ENCOUNTER 2019-06-15 06:45 | Outpatient (CLI) | payer MEDICARE, SELFPAY ==
[2019-06-15 07:56] LABS: Hemoglobin A1C 7.3 % (3.8-5.6)
[2019-06-15 08:50] LABS: Anion Gap 8.2 mmol/L (3-11); BUN 23 mg/dL (7-18); CO2 28.8 mmol/L (21.0-32.0); CREATININE 1.04 mg/dL (0.70-1.30); Calcium 9.1 mg/dL (8.5-10.1); Chloride 106 mmol/L (98-107); Glucose 97 mg/dL (74-106); Potassium 4.3 mmol/L (3.5-5.1); Sodium 143 mmol/L (136-145); Uric Acid 4.1 mg/dL (3.5-7.2)
== END 2019-06-15 07:05 ==
PROVIDERS: PCP Family Medicine; Visit Provider Family Medicine
DX: E11.9 Type 2 diabetes mellitus without complications (principal); M10.9 Gout, unspecified
CPT/HCPCS: 36415; 80048; 83036; 84550

== ENCOUNTER → 2019-07-09 09:40 | Outpatient (BNVA) | payer MEDICARE, SELFPAY | PROVIDERS: PCP Family Medicine; Referring Provider Family Medicine; Visit Provider Physical Therapy Assistant | DX: Z12.11 Encounter for screening for malignant neoplasm of colon (principal); Z86.010 Personal history of colon polyps; I10 Essential (primary) hypertension; E11.9 Type 2 diabetes mellitus without complications ==

== ENCOUNTER 2019-07-30 06:47 | Day surgery (SDC) | payer MEDICARE, SELFPAY ==
[2019-07-30 07:06] VITALS: BP 128/83; PULSE 89; RESP 16; TEMP 36.7; O2SAT 96
[2019-07-30] MEDS: Lactated Ringers 1,000 ML 80 ML IV (07:42)
--- NOTE | 2019-07-30 08:00 | W.PM.DSUDISC ---
Discharge Plan Disposition Patient Disposition: HOME Condition: Good Discharge Details Reason For Visit: Colonoscopy Attending Provider: Citlali Hartmann Primary Care Provider: Lolis Meléndez Home Meds and New Rx's Prescriptions: Continued finasteride 5 mg tablet 5 mg PO DAILY Qty: 90 RF: 4 Lantus Solostar U-100 Insulin 100 unit/mL (3 mL) insulin pen 28 unit subcut DAILY RF: 0 vitamin E (dl, acetate) 1,000 UNIT capsule 1,000 unit PO DAILY RF: 0 lisinopril [Zestril] 10 mg tablet 10 mg PO DAILY Qty: 90 RF: 4 metformin [Glucophage] 1,000 mg tablet 1,000 mg PO BID Qty: 180 RF: 4 allopurinol [Zyloprim] 100 mg tablet 100 mg PO DAILY Qty: 90 RF: 4 atorvastatin [Lipitor] 40 mg tablet 40 mg PO DAILY Qty: 90 RF: 4 lorazepam 1 mg tablet 1 mg PO HS PRN (Reason: sleep) Qty: 25 RF: 0 (DME) pen needle, diabetic [BD Ultra-Fine Bridget Pen Needle] 32 gauge x 5/32 needle 1 ea Miscellaneous DAILY Qty: 100 RF: 3 tamsulosin 0.4 mg capsule 0.8 mg PO HS RF: 0 Discharge Instructions Additional Instructions: Findings: One tiny polyp was removed. My office will contact you with biopsy results. Diverticulosis was present. Make sure to take in 30 grams of fiber daily. Follow up: Future colonoscopy recommendations will be based on the biopsy results. Please call if you develop: fevers >101.5 Nausea or Vomiting Abdominal pain that is not transient DAY SURGERY UNIT POST COLONOSCOPY INSTRUCTIONS 1. Because there will be medication in your system for the next 24 hours, you may feel a little sleepy. Your coordination will be affected. Therefore: a. Do not drive or operate dangerous equipment for 24 hours. b. Do not drink alcohol beverages for 24 hours (not even beer). c. Plan to go home and rest for the day. 2. Generally there are no restrictions on your activity after a day or so has gone by, but you may feel a bit fatigued for a few days. 3 After you arrive home you may have a light meal and return to a normal diet as you can tolerate it without feeling sick to your stomach. 4. After surgery, you may feel pain or discomfort. This should be only transient, but if it persists please contact your doctor. 5. If there are any questions regarding the findings of your procedure, please feel free to contact your doctor. 6. If you are unable to contact your doctor with a problem, contact the hospital at [phone]. 7. Continue all your regular medications unless directed otherwise. I understand the above instructions and have no questions. Signature of Patient or Responsible Adult Escort Date/Time Name of Responsible Adult Escort Signature of Nurse Date/Time Activity:: Activity as Tolerated Diet:: As Tolerated Discharge Orders Discharge Orders: Discharge Order (Routine); Ordered 07/30/19 Ordered By: Citlali Hartmann DS: Diagnosis Discharge Diagnosis (1) Diverticulosis: Status: Acute (2) Colon polyp: Status: Acute
--- NOTE | 2019-07-30 08:45 | BOWEL_PTH ---
PATIENT: Alex Dorsey LOC: [facility] U#:[id number] AGE/SX: 83/M ROOM: RE07/30/[address]: Citlali Hartmann MD : [id number] BED: DIS: 07/30/2019 SPEC #: [id number] RECD: 07/30/19 13:01 STATUS: LIAT REMaurizio #: [id number] KAY: 07/30/19 08:[address]: Citlali Hartmann DEPT: Surgical Specimen RECD BY: Lexy Sanders ENTERED: 07/30/19 13:01 SP TYPE: Bowel OTHR DR: Lolis Meléndez MD Tissues: 1 - BIOPSY BOWEL Procedures: GROSS AND MICRO LEVEL 4 Comments: [id number]
--- NOTE | 2019-07-30 09:02 | COLE_ITS ---
DATE: JULY 30, 2019 Preoperative Diagnosis: History of colon polyps Postoperative Diagnosis: 1. Diminutive colon polyp 2. Diverticulosis Operation: Colonoscopy with cold forceps polypectomy Anesthesia: General Surgeon: Citlali Hartmann M.D. Indications: This is an 83 year-old man whose last colonoscopy in 2011 showed a tubular adenoma. He is asymptomatic and has no family history of colon cancer. Procedure: He was placed in the left Rooney position. Propofol was titrated to sedation. Digital rectal exam revealed no abnormalities. The scope was advanced to the cecum without difficulty. The ileocecal valve and appendiceal orifice were clearly identified. His prep was good. The scope was slowly withdrawn with scattered diverticular change noted throughout the colon but most prominent in the sigmoid region. In the proximal transverse colon there was a diminutive polyp that was removed with cold forceps and sent to pathology. No other abnormalities were seen throughout the transverse, descending, sigmoid colon and rectum including on retroflexed view. He tolerated the procedure well and was stable to recovery. If the polyp is adenomatous, he could consider colonoscopy again in five years, however, this should be based on overall health and is not necessarily a strong recommendation given the diminutive nature of this current polyp.
[2019-07-30 09:33] VITALS: BP 136/87; PULSE 69; RESP 16; TEMP 36.6; O2SAT 98
== END 2019-07-30 10:00 | disposition home or self-care (01) ==
PROVIDERS: PCP Family Medicine; Visit Provider Surgery
PROC: 0DJD8ZZ Inspection of Lower Intestinal Tract, Via Natural or Artificial Opening Endoscopic (ICD-10-PCS; CPT 45378; principal; 2019-07-30 08:15)
DX: Z12.11 Encounter for screening for malignant neoplasm of colon (principal); Z86.010 Personal history of colon polyps; D12.3 Benign neoplasm of transverse colon; K57.30 Diverticulosis of large intestine without perforation or abscess without bleeding; I10 Essential (primary) hypertension; E11.9 Type 2 diabetes mellitus without complications; Z79.4 Long term (current) use of insulin
CPT/HCPCS: 45380; 88305; J2001

== ENCOUNTER 2019-12-03 20:44 | Emergency (ER) | payer MEDICARE, SELFPAY ==
[2019-12-03 20:50] VITALS: BP 114/69; PULSE 71; RESP 20; TEMP 36.7; O2SAT 95
--- NOTE | 2019-12-03 20:56 | ED.GENADUL_ITS ---
Discharge Plan Disposition Patient Disposition: HOME Condition: Good Discharge Details Chief Complaint: Orthopedic Clinical Impression: Closed fracture of distal clavicle Primary Care Provider: Lolis Meléndez ED Provider: Osvaldo Carbajal [place] Meds and New Rx's Prescriptions: Continued finasteride 5 mg tablet 5 mg PO DAILY Qty: 90 RF: 4 vitamin E (dl, acetate) 1,000 UNIT capsule 1,000 unit PO DAILY RF: 0 lorazepam 1 mg tablet 1 mg PO HS PRN (Reason: sleep) Qty: 25 RF: 0 (DME) pen needle, diabetic [BD Ultra-Fine Bridget Pen Needle] 32 gauge x 5/32 needle 1 ea Miscellaneous DAILY Qty: 100 RF: 3 Lantus Solostar U-100 Insulin 100 unit/mL (3 mL) insulin pen 28 unit subcut DAILY Qty: 15 RF: 4 lisinopril [Zestril] 10 mg tablet 10 mg PO DAILY Qty: 90 RF: 4 metformin [Glucophage] 1,000 mg tablet 1,000 mg PO BID Qty: 180 RF: 4 allopurinol [Zyloprim] 100 mg tablet 100 mg PO DAILY Qty: 90 RF: 4 atorvastatin [Lipitor] 40 mg tablet 40 mg PO DAILY Qty: 90 RF: 4 tamsulosin 0.4 mg capsule 0.8 mg PO HS Qty: 180 RF: 4 Discharge Instructions Instructions: Clavicle Fracture (ED) Additional Instructions: You have a distal clavicle fracture and will need follow-up with orthopedics. Wear sling until seen by orthopedics next week. May use ibuprofen short-term to help with pain. May also use acetaminophen. Ice and rest over the weekend. Return to ED for chest pain, shortness of breath, numbness/weakness of left arm, uncontrolled pain in the shoulder. Referrals: [facility] [Provider Group] Medical Decision Making Elderly male tripped and fell playing basketball with his grandson. No loss of consciousness. No neurologic symptoms. No spinal tenderness. Lungs clear and equal with no rib tenderness. Some complaint of pain with deep breath but pain located in the left shoulder. Will dose with IM Toradol and sent for x-rays of left shoulder and chest. X-ray of the chest is unremarkable. No pneumothorax or rib fractures noted. Left shoulder film shows a distal left clavicle fracture with superior angulation. Patient remains neurovascularly intact. No significant tenting of the skin noted. Significant relief of pain with IM Toradol. Patient will be placed in a sling and referred to orthopedics for follow-up next week. Ice, ibuprofen and/ort acetaminophen for pain. Return to ED for difficulty breathing, numbness or weakness of the left arm, increasing pain in the shoulder. Medical Records Medical records reviewed: Yes I reviewed the patient's medical records. HPI General Mode of arrival: ambulatory . Date/Time Provider Initiated Documentation: 12/03/19 20:46 . Limitations to Documentation: no limitations . Information obtained by: patient, RN notes reviewed and old records reviewed . HPI Narrative: Patient presents to ED with left shoulder pain status post trip and fall playing basketball with his grandson. Denies loss of consciousness though he states family said he did hit his head. He developed profuse diaphoresis with onset of shoulder pain once he struck. He denies having chest pain or shortness of breath. He denies numbness or weakness to the left upper extremity. He sustained some abrasions to the left elbow and left knee but denies significant pain in this area. He is ambulatory on his own. Denies headache or neck pain. He is holding his arm against his body as if since sling and any type of movement causes significant shoulder pain. Related Data Home Medications Medication Instructions Recorded Confirmed vitamin E (dl, acetate) 1,000 unit PO DAILY 08/05/17 12/03/19 lorazepam 1 mg tablet 1 mg PO HS PRN #25 tab-cap 12/30/18 12/03/19 pen needle, diabetic 32 gauge x #100 ndl 04/06/19 12/03/19 finasteride 5 mg tablet 5 mg PO DAILY #90 tab 06/16/19 12/03/19 insulin glargine 100 unit/mL (3 28 unit SUBCUT DAILY #15 ml 08/11/19 12/03/19 mL) subcutaneous pen lisinopril 10 mg tablet 10 mg PO DAILY #90 tab 09/02/19 12/03/19 metformin 1,000 mg tablet 1,000 mg PO BID #180 tab 09/02/19 12/03/19 allopurinol 100 mg tablet 100 mg PO DAILY #90 tab 11/24/19 12/03/19 atorvastatin 40 mg tablet 40 mg PO DAILY #90 tab 11/24/19 12/03/19 tamsulosin 0.4 mg capsule 0.8 mg PO HS #180 cap 11/24/19 12/03/19 Previous Rx's Medication Instructions Recorded lorazepam 1 mg tablet 1 mg PO HS PRN #25 tab-cap 12/30/18 pen needle, diabetic 32 gauge x #100 ndl 04/06/19 finasteride 5 mg tablet 5 mg PO DAILY #90 tab 06/16/19 insulin glargine 100 unit/mL (3 28 unit SUBCUT DAILY #15 ml 08/11/19 mL) subcutaneous pen lisinopril 10 mg tablet 10 mg PO DAILY #90 tab 09/02/19 metformin 1,000 mg tablet 1,000 mg PO BID #180 tab 09/02/19 allopurinol 100 mg tablet 100 mg PO DAILY #90 tab 11/24/19 atorvastatin 40 mg tablet 40 mg PO DAILY #90 tab 11/24/19 tamsulosin 0.4 mg capsule 0.8 mg PO HS #180 cap 11/24/19 Allergies Allergy/AdvReac Type Severity Reaction Status Date / Time oxycodone HCl AdvReac GI UPSET Verified 12/03/19 20:54 [From OxyContin] General Stated Complaint: Orthopedic STANLEY: 3 Review of Systems Narrative: As documented in HPI otherwise negative as below. Const: no fever, chills, weakness Resp: no cough, SOB, pleuritic pain CV: no CP, edema, syncope GI: no abdominal pain, nausea, vomiting, diarrhea Neuro: no headache, numbness, focal weakness, confusion [facility] Medical History (Updated 12/03/19 @ 21:56 by Osvaldo Carbajal MD) Benign prostate hyperplasia (Chronic) Diabetes mellitus (Chronic 10/20/12) no ophtalmopathy: 01-10-2016/no nephropathy 07-12 Essential hypertension (Chronic 03/19/13) Gout (Chronic) Hx of Lyme disease (Acute) Hyperlipidemia (Chronic 10/20/12) Kidney stone (Chronic) 4 episodes. 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 Last seen 03/2019 Surgical History (Updated 12/03/19 @ 21:03 by Osvaldo Carbajal MD) Boil (Acute) States he had a boil tajen out of the left side of his neck. H/O arthroscopy of knee (Acute) Status post cataract extraction (Acute) Social History Smoking/Tobacco Use Status: Never Alcohol Intake: current Alcohol Intake frequency: a few times a month Alcohol type: beer and wine Drug use: Never Substance use type: does not use Counseling provided: none Caregiver/Support person: No Household members: spouse Housing: house Communication Needs: None Do you need help understanding health information?: Never Pets and animals: No Sexually active: No Do you think of yourself as: straight/heterosexual Current gender identity: male What is your relationship status?: How often do you talk on the phone with friends or family?: three or more times per week How often do you get together with friends or relatives?: three or more times per week How often do you attend worship or faith services?: decline to answer Do you belong to any clubs or organized social groups?: yes Panel score (0-1 are the most socially isolated patients): 3 What type of physical activity do you participate in: other Details: Stretches and general exercise Duration: 60-90 minutes/day Frequency: 5-6 times per week Jenny/Mormon: Hindu Special jenny needs: No Seatbelt use: always Helmet use: No Drive intox or ride w/intox class a regional drivers: No Do you feel safe at home: Yes Do you feel safe in your relationship?: Yes Exam Narrative Exam Narrative: Vitals: Afebrile with normal vitals and normal room air pulse ox. Const: WDWN elderly male in NAD. HEENT: NC/AT. Normal facial exam. Neck: Supple. Trachea midline. No midline spine tenderness. Lungs: Normal respiratory effort. Lungs are clear. No chest wall tenderness. Cor: RRR with slight murmur. Good radial pulses. Back: No spinal tenderness. Neuro: A+O x 3. Normal speech, mentation, gait. Cranial nerves II - XII grossly intact. No gross motor or sensory deficit. Ext: Decreased range of motion of left shoulder. Clavicle tender distally. Pain and tenderness at the head/neck area of shoulder. No obvious deformity. Neurovascularly intact distally. No tenderness distal extremity. Normal range of motion without tenderness of right upper extremity and bilateral lower extremities. Skin: Warm and dry with abrasions noted on left elbow and left knee. Course Vital Signs Vital signs: Vital Signs Temperature 98.1 F 12/03/19 20:50 Pulse 71 12/03/19 20:50 Respiratory Rate 20 12/03/19 20:50 Blood Pressure 114/69 12/03/19 20:50 Pulse Oximetry 95 12/03/19 20:50 Temperature 98.1 F 12/03/19 20:50 Temperature Source Skin 12/03/19 20:50 Pulse 71 12/03/19 20:50 Respiratory Rate 20 12/03/19 20:50 Respiratory Effort Non-Labored 12/03/19 20:53 Blood Pressure 114/69 12/03/19 20:50 Blood Pressure Position Sitting 12/03/19 20:50 Pulse Oximetry 95 12/03/19 20:50 Oxygen Delivery Method Room Air 12/03/19 20:50 Oxygen Flow Rate 0 12/03/19 20:50 Pain Level 5 12/03/19 20:50
[2019-12-03] MEDS: Ketorolac 30 MG/ML VIAL IM (21:07)
--- NOTE | 2019-12-03 21:30 | DI.RAD_ITS ---
EXAM: XR SHOULDER LT COMPLETE 2+V CLINICAL HISTORY: trauma TECHNIQUE: COMPARISON: No exams were available for comparison FINDINGS: Four views were obtained. There are severe degenerative changes of the glenohumeral joint and acromi oclavicular joint. There are very prominent soft tissue calcifications particularly involving the mcgrath perior aspect of the rotator cuff. There is an apparent inferiorly angulated fracture of the distal clavicle. There is moderate displacement at the fracture site. No additional fracture seen. IMPRESSION:
--- NOTE | 2019-12-03 21:30 | DI.RAD_ITS ---
EXAM: XR CHEST 2V PA LATERAL CLINICAL HISTORY: trauma TECHNIQUE: COMPARISON: CR XR CHEST 2V PA LATERAL from 01/12/2019 CR,XR XR SHOULDER LT COMPLETE 2+V from 12/03/2019 FINDINGS: Heart is not enlarged. Lungs are grossly clear and well expanded with senile changes. No pleural ef fusion seen. IMPRESSION: No evidence of acute intrapulmonary process.
--- NOTE | 2019-12-03 21:40 | DI.VRAD_ITS ---
PROCEDURE INFORMATION: Exam: XR Chest, 2 Views Exam date and time: 12/03/2019 9:24 PM Age: 84 years old Clinical indication: Injury or trauma; Initial encounter; Blunt trauma (contusions or hematomas); Injury date: 12/03/19; Injury details: Pain and limited rom in left shoulder S/P fall TECHNIQUE: Imaging protocol: XR of the chest Views: 2 views. COMPARISON: CR XR CHEST 2V PA LATERAL 01/12/2019 2:30 PM FINDINGS: The lungs are clear of infiltrate. There are no pleural effusions or pneumothorax. The heart size and pulmonary vascularity are normal. There are degenerative changes of the spine. No rib fractures are seen. IMPRESSION: No active disease. Dictated and Authenticated by: Ben Hathaway MD. Ordering:ALCIDES Riley MD
--- NOTE | 2019-12-03 21:42 | DI.VRAD_ITS ---
PROCEDURE INFORMATION: Exam: XR Left Shoulder Exam date and time: 12/03/2019 9:26 PM Age: 84 years old Clinical indication: Injury or trauma; Initial encounter; Blunt trauma (contusions or hematomas; Left; Injury date: 12/03/19; Injury details: Patient has pain in lt shoulder and is unable to abduct arm S/P fall TECHNIQUE: Imaging protocol: XR Left shoulder. Views: 2 or more views. COMPARISON: CR LEFT SHOULDER COMPLETE 07/30/2016 1:07 PM FINDINGS: There is deformity involving the distal clavicle consistent with a fracture. This is new since the previous exam. There is superior angulation. The glenohumeral joint appears intact with no dislocation. There are some degenerative changes along the inferior margin of the glenohumeral joint. There again noted to be extensive radiodensities superior to the humeral head which may represent calcific tendinitis. There is spurring along the inferior margin of the acromion. IMPRESSION: 1. Fracture distal clavicle with superior angulation. 2. No evidence for dislocation. 3. Findings suggestive of calcific tendinitis. 4. Arthritic changes as described. Dictated and Authenticated by: Ben Hathaway MD. Ordering:ALCIDES Riley MD
[2019-12-03 22:04] VITALS: BP 114/69; PULSE 71; RESP 20; TEMP 36.7; O2SAT 95
== END 2019-12-03 22:05 | disposition home or self-care (01) ==
PROVIDERS: Emergency Provider Emergency Medicine; PCP Family Medicine
DX: S42.032A Displaced fracture of lateral end of left clavicle, initial encounter for closed fracture (principal); R07.81 Pleurodynia; W18.39XA Other fall on same level, initial encounter; E11.9 Type 2 diabetes mellitus without complications; Z79.84 Long term (current) use of oral hypoglycemic drugs; I10 Essential (primary) hypertension
CPT/HCPCS: 23500; 96372; 99284; 71046; 73030; 99283; J1885; L3650

== ENCOUNTER 2019-12-13 02:23 | Outpatient (CLI) | payer MEDICARE, SELFPAY ==
[2019-12-13 11:15] LABS: Hemoglobin A1C 7.5 % (3.8-5.6)
[2019-12-13 12:10] LABS: ALT 27 U/L (16-63); AST 16 U/L (15-37); Albumin 3.9 g/dL (3.4-5.0); Alkaline Phosphatase 72 U/L (46-116); Anion Gap 9.4 mmol/L (3-11); BUN 34 mg/dL (7-18); Bilirubin, Total 0.5 mg/dL (0.2-1.0); CO2 24.6 mmol/L (21.0-32.0); CREATININE 1.38 mg/dL (0.70-1.30); Calcium 9.5 mg/dL (8.5-10.1); Calculated LDL 77 mg/dL (<100); Chloride 107 mmol/L (98-107); Cholesterol 150 mg/dL (<200); Estimated GFR 49.21 (mL/min/1.73m2); Glucose 129 mg/dL (74-106); HDL Cholesterol 59 mg/dL (40-60); Potassium 4.7 mmol/L (3.5-5.1); Sodium 141 mmol/L (136-145); Total Protein 6.8 g/dL (6.4-8.2); Triglyceride 70 mg/dL (<150)
[2019-12-14 09:27] LABS: PSA, Screening 0.9 ng/mL (0.0-6.5)
== END 2019-12-13 02:43 ==
PROVIDERS: PCP Family Medicine; Visit Provider Family Medicine
DX: E11.9 Type 2 diabetes mellitus without complications (principal); N40.0 Benign prostatic hyperplasia without lower urinary tract symptoms
CPT/HCPCS: 36415; 80053; 80061; 84153; 83036

== ENCOUNTER 2019-12-15 14:02 | Outpatient (CLI) | payer MEDICARE, SELFPAY ==
--- NOTE | 2019-12-15 13:00 | DI.RAD_ITS ---
EXAM: XR CLAVICLE LT CLINICAL HISTORY: fu clavicle fracture TECHNIQUE: 2D digital imaging was performed. COMPARISON: CR XR CHEST 2V PA LATERAL from 01/12/2019 CR,XR XR SHOULDER LT COMPLETE 2+V from 12/03/2019 FINDINGS: BONES: There is no change in alignment of the angulated distal left clavicular fracture. There is a mildly displaced fracture of the posterior aspect of the left 3rd rib. No new fracture is identified . JOINTS: No dislocation present. SOFT TISSUE: Soft tissue calcifications adjacent to the proximal humerus are again seen consistent wi th calcific tendinitis. IMPRESSION: 1. Stable distal left clavicular fracture. 2. Mildly displaced fracture of the posterior left 3rd rib. DATA REPOSITORY: RADIATION DOSE DELIVERED:
== END 2019-12-15 14:22 ==
PROVIDERS: PCP Family Medicine; Referring Provider Student in an Organized Health Care Education/Training Program; Visit Provider Student in an Organized Health Care Education/Training Program
DX: S42.032A Displaced fracture of lateral end of left clavicle, initial encounter for closed fracture; W18.39XA Other fall on same level, initial encounter; E11.9 Type 2 diabetes mellitus without complications; I10 Essential (primary) hypertension; Z79.4 Long term (current) use of insulin; S22.32XA Fracture of one rib, left side, initial encounter for closed fracture
CPT/HCPCS: 99204; 99215; 73000

== ENCOUNTER 2020-02-02 11:26 | Outpatient (CLI) | payer MEDICARE, SELFPAY ==
--- NOTE | 2020-02-02 10:15 | DI.RAD_ITS ---
EXAM: XR CLAVICLE LT INDICATION: L clavicle fx. COMPARISON: CR,XR XR SHOULDER LT COMPLETE 2+V from 12/03/2019 CR XR CLAVICLE LT from 12/15/2019 TECHNIQUE: 2D digital imaging was performed. FINDINGS: There has been no change in the alignment of the distal clavicle fracture. There is evidence of incr eased healing when compared with the previous exam. Calcification is again noted superior to the hum erus consistent with calcific tendinosis. A left 3rd rib fracture is again noted. DATA REPOSITORY: RADIATION DOSE DELIVERED:
== END 2020-02-02 11:46 ==
PROVIDERS: PCP Family Medicine; Referring Provider Family Medicine; Visit Provider Student in an Organized Health Care Education/Training Program
DX: S42.032A Displaced fracture of lateral end of left clavicle, initial encounter for closed fracture (principal); S22.32XA Fracture of one rib, left side, initial encounter for closed fracture
CPT/HCPCS: 99213; 73000

== ENCOUNTER 2020-04-05 07:37 | Outpatient (CLI) | payer MEDICARE, SELFPAY ==
[2020-04-09 17:57] LABS: Patient Race White; SARS-CoV-2 RNA Undetected (Undetected); SARS-CoV-2 Specimen Source Nasal
== END 2020-04-05 07:57 ==
PROVIDERS: PCP Family Medicine; Visit Provider Emergency Medicine
DX: Z20.828 Contact with and (suspected) exposure to other viral communicable diseases (principal)
CPT/HCPCS: U0003

== ENCOUNTER → 2020-04-27 10:00 | Outpatient (BNVA) | payer MEDICARE, SELFPAY | PROVIDERS: PCP Family Medicine; Referring Provider Family Medicine; Visit Provider Internal Medicine Cardiovascular Disease | DX: I35.0 Nonrheumatic aortic (valve) stenosis (principal); I10 Essential (primary) hypertension; E11.9 Type 2 diabetes mellitus without complications | CPT/HCPCS: 99214 ==

== ENCOUNTER 2020-05-31 09:31 | Outpatient (CLI) | payer MEDICARE, SELFPAY ==
[2020-05-31 10:43] LABS: Abs Immature Grans 0.02 10^3/uL (0.0-0.06); Absolute Basophil Count 0.05 10^3/uL (0.0-0.2); Absolute Eosinophil Count 0.28 10^3/uL (0.0-0.7); Absolute Lymphocyte Count 2.47 10^3/uL (1.2-3.4); Absolute Monocyte Count 0.49 10^3/uL (0.1-0.8); Absolute Neutrophil Count 3.87 10^3/uL (1.2-6.7); Basophils % 0.7; Eosinophils % 3.9; Immature Grans % 0.3; Lymphocytes % 34.4; MCH 28.9 pg (27.0-33.0); MCHC 32.6 % (32.0-36.0); MCV 88.8 fL (80-95); MPV 10.5 fL (8.0-11.0); Monocytes % 6.8; Neutrophils % 53.9; Nucleated RBC 0 %; Platelet Count 213 10^3/uL (130-400); RBC 4.84 10^6/uL (4.36-5.78); RDW 12.4 % (11.8-14.1); WBC 7.18 10^3/uL (4.4-10.8)
[2020-05-31 11:02] LABS: ALT 34 U/L (16-63); AST 17 U/L (15-37); Albumin 3.8 g/dL (3.4-5.0); Alkaline Phosphatase 68 U/L (46-116); Anion Gap 8.1 mmol/L (3-11); BUN 25 mg/dL (7-18); Bilirubin, Total 0.5 mg/dL (0.2-1.0); CO2 26.9 mmol/L (21.0-32.0); Calcium 8.9 mg/dL (8.5-10.1); Chloride 106 mmol/L (98-107); Estimated GFR 57.82 (mL/min/1.73m2); Glucose 153 mg/dL (74-106); LDH 144 U/L (85-227); Potassium 4.3 mmol/L (3.5-5.1); Sodium 141 mmol/L (136-145); Total Protein 7.2 g/dL (6.4-8.2)
== END 2020-05-31 09:51 ==
PROVIDERS: PCP Family Medicine; Visit Provider Internal Medicine Hematology & Oncology
DX: C85.80 Other specified types of non-Hodgkin lymphoma, unspecified site (principal)
CPT/HCPCS: 36415; 80053; 83615; 85025

== ENCOUNTER 2020-06-23 01:40 | Outpatient (CLI) | payer MEDICARE, SELFPAY ==
[2020-06-23 08:03] LABS: Abs Immature Grans 0.01 10^3/uL (0.0-0.06); Absolute Basophil Count 0.06 10^3/uL (0.0-0.2); Absolute Eosinophil Count 0.27 10^3/uL (0.0-0.7); Absolute Lymphocyte Count 2.85 10^3/uL (1.2-3.4); Absolute Monocyte Count 0.61 10^3/uL (0.1-0.8); Absolute Neutrophil Count 3.66 10^3/uL (1.2-6.7); Basophils % 0.8; Eosinophils % 3.6; HCT 43.1 % (40.0-50.0); HGB 14.6 g/dL (13.5-17.5); Immature Grans % 0.1; Lymphocytes % 38.2; MCH 29.6 pg (27.0-33.0); MCHC 33.9 % (32.0-36.0); MCV 87.4 fL (80-95); Monocytes % 8.2; Neutrophils % 49.1; Nucleated RBC 0 %; Platelet Count 197 10^3/uL (130-400); RBC 4.93 10^6/uL (4.36-5.78); RDW 12.6 % (11.8-14.1); WBC 7.46 10^3/uL (4.4-10.8)
[2020-06-23 08:17] LABS: ALT 31 U/L (16-63); AST 21 U/L (15-37); Albumin 3.9 g/dL (3.4-5.0); Alkaline Phosphatase 64 U/L (46-116); Anion Gap 7.3 mmol/L (3-11); BUN 26 mg/dL (7-18); Bilirubin, Total 0.7 mg/dL (0.2-1.0); CO2 25.7 mmol/L (21.0-32.0); CREATININE 1.2 mg/dL (0.70-1.30); Calcium 8.9 mg/dL (8.5-10.1); Chloride 103 mmol/L (98-107); Estimated GFR 57.82 (mL/min/1.73m2); Glucose 118 mg/dL (74-106); LDH 194 U/L (85-227); Potassium 4.1 mmol/L (3.5-5.1); Sodium 136 mmol/L (136-145); Total Protein 7.2 g/dL (6.4-8.2)
== END 2020-06-23 02:00 ==
PROVIDERS: PCP Family Medicine; Visit Provider Internal Medicine Hematology & Oncology
DX: C85.80 Other specified types of non-Hodgkin lymphoma, unspecified site (principal)
CPT/HCPCS: 36415; 80053; 83615; 85025

== ENCOUNTER 2020-12-22 03:10 | Outpatient (CLI) | payer MEDICARE, SELFPAY ==
[2020-12-22 10:18] LABS: Hemoglobin A1C 7.2 % (<5.7)
[2020-12-22 10:44] LABS: Anion Gap 13.6 mmol/L (3-11); BUN 23 mg/dL (7-18); CO2 23.4 mmol/L (21.0-32.0); CREATININE 1.2 mg/dL (0.70-1.30); Calcium 9.3 mg/dL (8.5-10.1); Calculated LDL 64 mg/dL (<100); Chloride 106 mmol/L (98-107); Cholesterol 152 mg/dL (<200); Estimated GFR 57.68 (mL/min/1.73m2); Glucose 136 mg/dL (74-106); HDL Cholesterol 77 mg/dL (40-60); Potassium 4.4 mmol/L (3.5-5.1); Sodium 143 mmol/L (136-145); Triglyceride 58 mg/dL (<150)
[2020-12-22 11:19] LABS: COMMENT (LAB VIEW ONLY) 171.62 mg/dL; Microalb ug/mg Crea 15.6 ug/mg Cr
== END 2020-12-22 03:11 | disposition home or self-care (01) ==
LOC: LBO 03:10
PROVIDERS: PCP Family Medicine; Visit Provider Family Medicine
DX: E11.9 Type 2 diabetes mellitus without complications (principal)
CPT/HCPCS: 36415; 80048; 80061; 82043; 82570; 83036

== ENCOUNTER → 2021-01-18 13:39 | Outpatient (BNVA) | payer MEDICARE, SELFPAY | PROVIDERS: PCP Family Medicine; Referring Provider Family Medicine; Visit Provider Psychiatry & Neurology Neurology | DX: G20 Parkinson's disease (principal); I35.0 Nonrheumatic aortic (valve) stenosis | CPT/HCPCS: 99215; G2212 ==

== ENCOUNTER 2021-02-19 01:44 | Outpatient (CLI) | payer MEDICARE, SELFPAY ==
--- NOTE | 2021-02-19 06:45 | DI.US_ITS ---
APPROVED REPORT EXAM: Comprehensive 2D, Doppler, and color-flow Echocardiogram Patient Location: Out-Patient Sugar Drier: Lizy Sung RDCS (AE) Indications: Aortic stenosis, Increased fatigue Other Information Study Quality: Adequate Conclusion Normal left ventricular wall thickness and chamber size. Estimated ejection fraction is 55 to 60%. There are no segmental wall motion abnormalities Normal right ventricular size and systolic function The left atrium is mildly dilated. The right atrium is normal in size Aortic valve is sclerotic and trileaflet. There is mild aortic stenosis. Peak gradient is 25 mmHg. Mean gradient is 16 mmHg. Calculated aortic valve area is 1.88 cm??. There is no aortic regurgitat ion Mild to moderate mitral annular calcification. Mild to moderate mitral regurgitation Normal tricuspid valve with trace to mild regurgitation. Normal estimated right ventricular systolic pressure 22 mmHg Normal pulmonic valve with trace regurgitation Dilated ascending aorta measuring 3.91 cm Wall motion Left Ventricle The left ventricle is normal size. The left ventricular systolic function is normal. The left ventric ular ejection fraction is within the normal range. There is normal left ventricular wall thickness. T here is normal LV segmental wall motion. There is no ventricular septal defect visualized. LVEF is 57 %. Right Ventricle The right ventricle is normal size. The right ventricular systolic function is normal. The RVSP is 22 .4 mmHg. Atria Left atrium is mildly dilated. The right atrium size is normal. The interatrial septum is intact with no evidence for an atrial septal defect. Aortic Valve Aortic valve is calcified. Aortic valve is trileaflet. Mild aortic stenosis. Peak aortic valve gradie nt is 25.4mmHg. Highest mean aortic valve gradient is 15.7mmHg. Calculated SHANTA by the continuity equa tion is 1.88cm2. No aortic regurgitation is present. Mitral Valve Mild to moderate mitral annular calcification. No evidence of mitral valve stenosis. Mild to moderate mitral regurgitation. Tricuspid Valve The tricuspid valve is normal in structure. There is no tricuspid valve stenosis. Trace to mild tricu spid regurgitation. Pulmonic Valve The pulmonary valve is normal in structure. There is no pulmonic valvular stenosis. Trace pulmonic re gurgitation. Great Vessels The aortic root is normal in size. The ascending aorta is moderately dilated.3.91 cm Aortic arch is n ot well visualized. IVC is normal in size and collapses >50% with inspiration. Pericardium There is no pericardial effusion. 2D Dimensions IVSD d PLAX 1.11 cm M: 0.6-1.2 LV Vol A2C d MOD 155.3 mL LVPW d PLAX 1.14 cm M: 0.6 - 1.2 LV Vol A4C d MOD 163.5 mL LVID d PLAX 5.01 cm M: 4.2 - 5.8 LA vol/ BSA A2C s A-L 48.1 mL/m2 LVDs 3.50 cm M: 2.5 - 4.0 LA vol/ BSA A4C s A-L 44.4 mL/m2 Ao Root d 3.39 cm M: 3.1 - 3.7 LA Vol/ BSA Biplane s A-L 47.4 mL/m2 RA Area A4C 16.52 cm2 LA Area A4C s MOD 26.85 cm2 RA Vol/ BSA A4C s A-L 19.8 mL/m2 LA Area A2C s MOD 27.27 cm2 Ao Asc Diam d 3.91 cm M: 2.6 - 3.4 LV EF A4C MOD 57.3 % LV EF Teichholz 56.1 % LV EF A2C MOD 57.1 % LVEF (Johnson's) 56.76 % M: 52 - 72 LV EF Biplane MOD 56.8 % LV Volume 118.71 mL M: 62 - 150 SV 90.98 mL LV Volume Index 57.07 mL/m2 M: 34 - 74 SV Index 43.77 mL/m2 LV Vol Biplane MOD 160.3 mL FS 29.35 % M-Mode TAPSE 2.17 cm (M/F) >1.7 LV Diastology MV E' medial 0.059 (>0.07 m/s) E/A Ratio 1.2 LV E/e MED 17.50 (<14) MV E Vmax 1.03 (0.4-1.3 m/s) MV E' lateral 0.080 (>0.1 m/s) MV A Vmax 0.85 (0.4-1.3 m/s) LV E/e LAT 12.85 (<14) MV E/A Ratio 1.15 MV E/E' medial 17.50 MV E/E' lateral 12.86 Aortic Valve LVOT Area 3.77 cm2 AoV Area Vmax 1.88 cm2 LVOT Vmax 1.26 m/s AoV Area/ BSA (Vmax) 0.90 cm2/m2 LVOT Mean Keenan. 0.79 m/s SHANTA Mean Keenan. 1.55 cm2 LVOT Peak Grad 6.3 mmHg SHANTA Mean Keenan. Index 0.74 cm2/m2 LVOT Mean Grad 3.0 mmHg LVOT VTI 0.324 m LVOT Diam s 2.15 cm AoV Vmax 2.52 m/s Velocity Ratio 0.50 AoV Mean Keenan. 1.91 m/s AoV Peak Grad 25.4 mmHg LVOT SV 122.22 mL AoV Mean Grad 15.7 mmHg AoV VTI 0.638 m AoV Area VTI 1.92 cm2 AoV Area/ BSA (VTI) 0.92 cm/m2 Mitral Valve MV DT 238 (160-240 msec) MV PHT 69 msec MV Area PHT 3.19 cm2 MV VTI 0.485 m MV Area VTI 2.52 (4.0-6.0 cm2) Pulmonary Valve PV Vmax 1.07 (0.5-1.5 m/s) RVOT Peak Gr. 1.72 mmHg PV Peak Grad 4.6 mmHg RVOT Mean Gr. 0.95 mmHg PV Mean Grad 2.5 mmHg RVOT VTI 0.166 m PV VTI 0.221 m RVOT Vmax 0.66 m/s Tricuspid Valve TR Peak Grad 19.3 mmHg TR Vmax 2.20 m/s RA Pressure 3.00 mmHg RVSP (TR) 22.4 mmHg
== END 2021-02-19 02:04 ==
PROVIDERS: PCP Family Medicine; Visit Provider Psychiatry & Neurology Neurology
DX: I08.3 Combined rheumatic disorders of mitral, aortic and tricuspid valves; R53.83 Other fatigue; I77.812 Thoracoabdominal aortic ectasia
CPT/HCPCS: 93306

== ENCOUNTER → 2021-02-22 09:40 | Outpatient (BNVA) | payer MEDICARE, SELFPAY | PROVIDERS: PCP Family Medicine; Referring Provider Family Medicine; Visit Provider Psychiatry & Neurology Neurology | DX: G20 Parkinson's disease (principal); E11.9 Type 2 diabetes mellitus without complications; K59.00 Constipation, unspecified; R53.83 Other fatigue | CPT/HCPCS: 99213 ==

== ENCOUNTER 2021-04-05 02:38 | Outpatient (CLI) | payer MEDICARE, SELFPAY ==
[2021-04-05 11:43] LABS: Abs Immature Grans 0.02 10^3/uL (0.0-0.06); Absolute Basophil Count 0.07 10^3/uL (0.0-0.2); Absolute Eosinophil Count 0.23 10^3/uL (0.0-0.7); Absolute Lymphocyte Count 2.39 10^3/uL (1.2-3.4); Absolute Monocyte Count 0.56 10^3/uL (0.1-0.8); Basophils % 0.9; HCT 40.6 % (40.0-50.0); HGB 13.5 g/dL (13.5-17.5); Immature Grans % 0.3; Lymphocytes % 31.6; MCH 28.9 pg (27.0-33.0); MCHC 33.3 % (32.0-36.0); MCV 86.9 fL (80-95); MPV 10.9 fL (8.0-11.0); Monocytes % 7.4; Neutrophils % 56.8; Nucleated RBC 0 %; Platelet Count 206 10^3/uL (130-400); RBC 4.67 10^6/uL (4.36-5.78); RDW 12.8 % (11.8-14.1); WBC 7.57 10^3/uL (4.4-10.8)
[2021-04-05 13:03] LABS: Hemoglobin A1C 7.5 % (<5.7)
[2021-04-05 14:20] LABS: Albumin 4.1 g/dL (3.4-5.0); Alkaline Phosphatase 70 U/L (46-116); BUN 22 mg/dL (7-18); Bilirubin, Total 0.6 mg/dL (0.2-1.0); CREATININE 1.1 mg/dL (0.70-1.30); Calcium 9.2 mg/dL (8.5-10.1); Chloride 105 mmol/L (98-107); Glucose 126 mg/dL (74-106); Potassium 4.5 mmol/L (3.5-5.1); Sodium 140 mmol/L (136-145); Total Protein 6.9 g/dL (6.4-8.2)
[2021-04-05 14:21] LABS: ALT 6 U/L (16-63); AST 17 U/L (15-37); Anion Gap 9.3 mmol/L (3-11); CO2 25.7 mmol/L (21.0-32.0)
== END 2021-04-05 02:39 | disposition home or self-care (01) ==
LOC: LBO 02:38
PROVIDERS: PCP Family Medicine; Visit Provider Family Medicine
DX: E11.9 Type 2 diabetes mellitus without complications (principal); E04.1 Nontoxic single thyroid nodule; C85.80 Other specified types of non-Hodgkin lymphoma, unspecified site
CPT/HCPCS: 36415; 80053; 83036; 83615; 84443; 85025

== ENCOUNTER 2021-04-06 01:02 | Outpatient (CLI) | payer MEDICARE, SELFPAY ==
--- NOTE | 2021-04-06 06:30 | DI.US_ITS ---
Exam(s) US THYROID EXAM: US THYROID CLINICAL HISTORY: f/u thyroid nodule right lobe 2019 + fatigue,e04.1 TECHNIQUE: Ultrasound performed using standard protocol. COMPARISON: US US ECHOCARDIOGRAM from 02/19/2021 FINDINGS: Thyroid ultrasound was performed according to the usual protocol. Right thyroid lobe measures 4.7 x 2.6 x 2.6 cm. Left thyroid lobe measures 4.8 x 1.6 x 1.7 cm. The isthmus is about 4 millimeters in thickness. Unremarkable appearance of cervical lymph nodes noted. There are multiple thyroid nodules. The largest nodule lies in the inferior pole of the right thyroi d lobe and is 41 x 23 x 24 millimeters in diameter and is solid and mildly hyperechoic, wider than ta ll, and has smooth marked gin stone. There are no echogenic foci. This is a TR 3 lesion by the TI-R ADS classification and fine needle aspiration is recommended, as lesion is in excess of 2.5 cm. Note is also made of an 11 millimeter in diameter nodule located in the lower pole of the left thyroi d lobe, this is solid, isoechoic, and contains peripheral calcifications, this is a TR 4 lesion and f ollow-up ultrasound is recommended in 12 months. Additional subcentimeter nodules are also present, no suspicious features and no further evaluation r ecommended for these small nodules. IMPRESSION: Fine needle aspiration biopsy recommended for right thyroid lobe nodule as described above. DATA REPOSITORY:
== END 2021-04-06 01:22 ==
PROVIDERS: PCP Family Medicine; Visit Provider Family Medicine
DX: E04.2 Nontoxic multinodular goiter (principal); R53.83 Other fatigue
CPT/HCPCS: 76536

== ENCOUNTER → 2021-05-04 08:57 | Outpatient (BNVA) | payer MEDICARE, SELFPAY | PROVIDERS: PCP Family Medicine; Referring Provider Family Medicine; Visit Provider Internal Medicine Cardiovascular Disease | DX: I35.0 Nonrheumatic aortic (valve) stenosis (principal); I10 Essential (primary) hypertension; G20 Parkinson's disease | CPT/HCPCS: 99214; 99213 ==

== ENCOUNTER → 2021-06-14 12:55 | Outpatient (BNVA) | payer MEDICARE, SELFPAY | PROVIDERS: PCP Family Medicine; Referring Provider Family Medicine; Visit Provider Psychiatry & Neurology Neurology | DX: G20 Parkinson's disease (principal); E11.9 Type 2 diabetes mellitus without complications; K59.00 Constipation, unspecified; I10 Essential (primary) hypertension | CPT/HCPCS: 99213 ==

== ENCOUNTER 2021-06-27 03:19 | Outpatient (CLI) | payer MEDICARE, SELFPAY ==
[2021-06-27 10:36] LABS: CREATININE 1.1 mg/dL (0.70-1.30)
== END 2021-06-27 03:20 | disposition home or self-care (01) ==
LOC: LBO 03:19
PROVIDERS: PCP Family Medicine; Visit Provider Family Medicine
DX: E11.9 Type 2 diabetes mellitus without complications (principal)
CPT/HCPCS: 36415; 82565

== ENCOUNTER 2021-07-04 01:45 | Outpatient (CLI) | payer MEDICARE, SELFPAY ==
[2021-07-04 09:13] LABS: Abs Immature Grans 0.02 10^3/uL (0.0-0.06); Absolute Basophil Count 0.09 10^3/uL (0.0-0.2); Absolute Eosinophil Count 0.23 10^3/uL (0.0-0.7); Absolute Monocyte Count 0.52 10^3/uL (0.1-0.8); Basophils % 1.3; Eosinophils % 3.3; HCT 42.5 % (40.0-50.0); HGB 13.6 g/dL (13.5-17.5); Immature Grans % 0.3; Lymphocytes % 34.5; MCH 29.1 pg (27.0-33.0); MCV 90.8 fL (80-95); MPV 10.2 fL (8.0-11.0); Monocytes % 7.5; Neutrophils % 53.1; Nucleated RBC 0 %; Platelet Count 207 10^3/uL (130-400); RBC 4.68 10^6/uL (4.36-5.78); RDW 12.9 % (11.8-14.1); RDW-SD 42.8 fL; WBC 6.96 10^3/uL (4.4-10.8)
[2021-07-04 09:24] LABS: ALT 12 U/L (16-63); AST 18 U/L (15-37); Alkaline Phosphatase 68 U/L (46-116); Anion Gap 8.7 mmol/L (3-11); BUN 28 mg/dL (7-18); Bilirubin, Total 0.6 mg/dL (0.2-1.0); CO2 26.3 mmol/L (21.0-32.0); CREATININE 1.1 mg/dL (0.70-1.30); Calcium 9.2 mg/dL (8.5-10.1); Chloride 106 mmol/L (98-107); Glucose 126 mg/dL (74-106); LDH 134 U/L (85-227); Potassium 4.1 mmol/L (3.5-5.1); Sodium 141 mmol/L (136-145); Total Protein 7.2 g/dL (6.4-8.2)
== END 2021-07-04 01:46 | disposition home or self-care (01) ==
LOC: LBO 01:45
PROVIDERS: PCP Family Medicine; Visit Provider Internal Medicine Hematology & Oncology
DX: C85.80 Other specified types of non-Hodgkin lymphoma, unspecified site (principal)
CPT/HCPCS: 36415; 80053; 83615; 85025

== ENCOUNTER 2021-09-04 02:50 | Outpatient (CLI) | payer MEDICARE, SELFPAY ==
[2021-09-04 11:45] LABS: Source Nasal/Nares
[2021-09-04 14:39] LABS: COVID-19 PCR Negative (Negative)
== END 2021-09-04 02:51 | disposition home or self-care (01) ==
LOC: LBO 02:51
PROVIDERS: PCP Family Medicine; Visit Provider Family Medicine
DX: Z20.822 Contact with and (suspected) exposure to COVID-19 (principal); Z01.818 Encounter for other preprocedural examination
CPT/HCPCS: 87635; U0005

== ENCOUNTER → 2021-09-05 01:03 | Outpatient (CLI) | payer MEDICARE, SELFPAY ==
--- NOTE | 2021-09-05 14:19 | ST.MBS_ITS ---
Date of Service Date of service: 09/05/21 Time of Service: 14:19 Modified Barium Swallow Study Findings: Videofluoroscopic Swallowing Evaluation (VFSE) / Modified Barium Swallow Study (MBSS) Speech Language Pathology Report HPI: Patient is an 85 year-old man with hypertension, hyperlipidemia, diabetes, gout, BPH, aortic stenosis, history of lymphoma, BPH, and low back pain. Referred for VFSE/MBSS at recent FERMENTATION MANAGER follow up visit given new onset report of difficulties with pills, increase in throat clearing. Additional Background re: PD, per Neurology: first noted a decline in his balance in ~2019, followed by development of a resting left arm tremor in 2020.? He has noted some changes in his speech, but isn't sure how his speech has changed.? He has no dysphagia. He has a long history of varying diarrhea and constipation. Previous Imaging: N/A SUBJECTIVE: Patient arrives to fluoro suite in anxious mood, but then reports he is surprised with how easy MBS study was today after procedure was completed, had been nervous given hx of claustrophobia with other imaging in the past; patient benefits from verbal counseling re: what exactly is involved in study today. Patient demonstrates calm, easygoing demeanor during review of MBS results this date. Of Note: Patient reports he is approximately 1/2 hour late with taking 2:30pm dose of his Sinemat, which is likely to effect outcomes from study today; notable tremor in hands at rest/during the study IMPRESSIONS: Swallow safety is preserved; swallow efficiency is grossly preserved. Mild oropharyngeal dysphagia, likely chronic, characterized by very mild lingual incoordination/pumping during mastication, mild swallow onset delay (to vallecular space) and occasional mild residue in vallecular space post swallow with less viscous textures (liquids) - Wash with more viscous texture (ie, L2/3 liquids or above) successful in clearing vallecular residue post successive thin swallows; suspect dysphagia presentation due to progression of PD, presbyphagia. Overall swallow function is likely to improve with administration of Sinemat at prescribed time(s). Patient appears to be at low risk for potential aspiration PNA and/or pulmonary compromise and low risk for malnutrition, low risk for dehydration. Diet modification is not indicated. Swallow prognosis is good-fair given expected progression of PD (-), current age (-), activity level (+) and pending patient/caregiver training in risk management as outlined, including use of trialed compensatory strategies as appropriate. Patient appears to be a good candidate for behavioral voice rehabilitation, which is likely to assist in maintenance / slow progression of decline in swallow function. Specialist referrals: N/A Ancillary tests: N/A Diet texture recommendation: IDDSI Level 7-Regular Solids, 0-Thin Liquids Please see further details at [email or web address] Diet texture modification is per patient's preference; please adjust diet textures at patient's discretion & collaboration with care team. Risk Management: Behavioral reflux precautions, including upright position during + 90 mins after meals. Alternate solids/liquids as able Control risk factors for aspiration pneumonia via (a) thorough oral hygiene & (b) maintaining physical mobility as tolerated PLAN: Therapy: Recommend subsequent outpatient session with FERMENTATION MANAGER to review results of today's exam and develop treatment plan as appropriate. May consider the following: - RMST - SPEAK OUT! - Pharyngeal swallow exercise as indicated Goal: TBD pending patient/caregiver interview Follow-up exam: N/A Thank you for allowing me to take part in this patient's care. Please feel free to contact me with any questions/concerns. Agnieszka Kamara MA [facility]-FERMENTATION MANAGER Speech Language Pathologist [phone] OBJECTIVE: Videofluoroscopic Swallow Evaluation (VFSE/MBSS) was conducted in the lateral and [id number] projections by Speech-Language Pathologist, in collaboration with Radiologist, to evaluate oropharyngeal swallow function. Anatomic view under fluoroscopy: WFL PO Barium Contrast Trials Oral barium water-soluble contrast was administered as follows: IDDSI Level 0 Varibar thin liquid (40% w/v) IDDSI Level 2 Varibar nectar thick/mildly thick liquid (40% w/v) IDDSI Level 3 Varibar thin honey/liquidised/moderately-thick (40% w/v) IDDSI Level 4 Varibar pudding/pureed/extremely thick (40% w/v) IDDSI Level 7 Regular Solid: 1/2 trever cracker coated in 3 mL Varibar pudding; 13 mm barium tablet PHYSIOLOGIC FINDINGS (1) Oral Impairment 1 Lip Closure [1-Interlabial escape; no progression to anterior lip] 2 Tongue Control [1- Escape to lateral buccal cavity/floor of mouth ] 3 Bolus Preparation/Mastication [1- Slowed/prolonged chewing/mashing with complete recollection] very mild lingual incoordination/pumping during mastication of solid 4 Bolus Transport/Lingual Motion [1- Delayed initiation of tongue motion] 5 Oral residue [1- Trace residue lining oral structures] Location palate, tongue 6 Initiation of pharyngeal swallow [1- Bolus head in valleculae] Pharyngeal Impairment 7 Velar Elevation [0- No bolus between soft palate and pharyngeal wall ] 8 Laryngeal Elevation [0- Complete superior movement of thyroid cartilage with complete approximation of arytenoids to epiglottic petiole ] 9 Anterior Hyoid Excursion [0- Complete anterior movement] 10 Epiglottic Movement [0- Complete inversion] 11 Laryngeal Vestibule Closure [1- Incomplete; narrow column of air/contrast in laryngeal vestibule] Penetration flash penetration - occurs prior to initial swallow onset from current bolus Aspiration not observed PAS / Overall 8-Point Penetration-Aspiration Scale (2) 2 - Material enters the airway remains above the vocal folds and is ejected from the airway Clinical Indicator(s) of Prandial/Postprandial Aspiration N/A 12 Pharyngeal Stripping Wave [0- Present; complete] 13 Pharyngeal Contraction [0- Complete] 14 PES/UES Opening [0- Complete distension and complete duration; no obstruction of flow] 15 Tongue Base Retraction [0- No contrast between tongue base and posterior pharyngeal wall] 16 Pharyngeal residue [1- Trace residue within or on pharyngeal structures] Location [place] Pharyngeal Residue Severity Rating Scale(3) Valleculae II Trace 1-5% Trace coating (solids) III Mild 5-25% Epiglottic ligament visible (thin liquids) Esophageal Impairment 17 Esophageal Clearance in Upright Position [0-Complete clearance; esophageal coating ] Notes This study was performed for interpretation only of the oropharyngeal and pharyngoesophageal domains of swallowing, and is not intended to diagnose any other radiologic abnormalities or substitute for a formal esophagram study. JOSEPH: (4) Severity LEVEL 6 - Full PO: normal diet - Within functional limits Trialed Compensatory Strategies & Outcome: Maneuvers Successful/Unsuccessful (+/-) Postures Successful/Unsuccessful (+/-) 3 second Preparatory Set + Chin Tuck Posture Cough Posterior Head tilt Reflexive Cued Throat Clear Head Tilt to Reflexive Left Cued Right Saliva swallow x[#] Head Turn/Rotation to Supraglottic Swallow Left Super-supraglottic Swallow Right Bolus Modifications Successful/Unsuccessful (+/-) Delivery/Alternating Consistencies - Wash with more viscous texture (ie, L3 or above) + clears vallecular residue Delivery/Via Straw Reduced Volume + Reduced Rate of Intake + Increased Viscosity + Other: Coding CPT Codes MOTION FLUOROSCOPY/SWALLOW - [id number] ([id number]) 1: Belinda Arnold al. ?MBS measurement tool for swallow impairment--MBSImp: establishing a standard.? Dysphagia vol. 23,4 (2008): 392-405. doi:10.1007/t07136-365-8603-0 2: (Lizette et al, 1996) 3: (Edilberto et al, 2015) 4: The Dysphagia Outcome and Severity Scale is a 7-point scale developed to systematically rate the functional severity of dysphagia based on objective assessment and make recommendations for diet level, independence level, and type of nutrition.
--- NOTE | 2021-09-05 14:50 | DI.RAD_ITS ---
Exam(s) RF MODIFIED SPEECH BA SWALLOW TECHNIQUE: Modified barium swallow was performed in conjunction with speech pathology. CONTRAST MATERIAL: Oral barium contrast was administered. COMPARISON: No exams were available for comparison FINDINGS: Multiple consistencies of barium were administered. There is no evidence of aspiration or penetration with any consistency. Barium tablet passed into th e stomach without delay. Esophagus unremarkable as visualized. Speech pathology report to follow. . . . IMPRESSION: No evidence of aspiration or penetration. Fluoro time 1 minutes 43 seconds RADIATION DOSE DELIVERED: april Herbert=7.24 mGy
[2021-09-05] MEDS: Barium Sulfate Oral Paste 40% W/V 230 ML TUBE 13 ML PO (15:05)
[2021-09-05] MEDS: Barium Sulfate 40% W/V 1500 CPS 250 ML BTL PO (15:06)
[2021-09-05] MEDS: Barium Sulfate 81% w/w for Oral Suspension 148 GM BTL PO (15:07)
[2021-09-05] MEDS: Barium Sulfate 40% W/V 240 ML BTL 75 ML PO (15:08)
[2021-09-05] MEDS: Barium Sulfate 700 MG TAB PO (15:09)
== END ==
PROVIDERS: PCP Family Medicine; Visit Provider Family Medicine
DX: G20 Parkinson's disease; Z91.89 Other specified personal risk factors, not elsewhere classified
CPT/HCPCS: 92526; 92611; 74221

== ENCOUNTER → 2021-11-05 13:24 | Outpatient (BNVA) | payer MEDICARE, SELFPAY | PROVIDERS: PCP Family Medicine; Referring Provider Family Medicine; Visit Provider Psychiatry & Neurology Neurology | DX: G20 Parkinson's disease (principal); K59.00 Constipation, unspecified; R53.83 Other fatigue; E11.9 Type 2 diabetes mellitus without complications; Z79.4 Long term (current) use of insulin | CPT/HCPCS: 99214 ==

== ENCOUNTER 2022-02-06 01:47 | Outpatient (CLI) | payer MEDICARE, SELFPAY ==
[2022-02-06 10:23] LABS: HCT 39.4 % (40.0-50.0); HGB 13.1 g/dL (13.5-17.5); MCH 29.4 pg (27.0-33.0); MCHC 33.2 % (32.0-36.0); MCV 88 fL (80-95); MPV 10.9 fL (8.0-11.0); Platelet Count 193 10^3/uL (130-400); RBC 4.46 10^6/uL (4.36-5.78); RDW 13.1 % (11.8-14.1); RDW-SD 42.6 fL; WBC 8.21 10^3/uL (4.4-10.8)
[2022-02-06 10:40] LABS: ALT 15 U/L (16-63); BUN 23 mg/dL (7-18); CREATININE 1.2 mg/dL (0.70-1.30); Calcium 8.8 mg/dL (8.5-10.1); Chloride 103 mmol/L (98-107); Estimated GFR 59.26 (mL/min/1.73m2); Glucose 107 mg/dL (74-106); Potassium 4.3 mmol/L (3.5-5.1); Sodium 137 mmol/L (136-145); TSH (W/Ref FT4) 2.58 uIU/mL (0.36-3.74); Uric Acid 4.2 mg/dL (3.5-7.2)
[2022-02-06 10:46] LABS: Hemoglobin A1C 7.5 % (<5.7)
[2022-02-06 17:37] LABS: Albumin ug/mg Crea 10 (<30); Albumin, Ur 1.3 mg/dL (See Note); Creatinine, Ur 127.6 mg/dL (See Note)
== END 2022-02-06 01:48 | disposition home or self-care (01) ==
LOC: LBO 01:47
PROVIDERS: PCP Family Medicine; Visit Provider Family Medicine
DX: E04.1 Nontoxic single thyroid nodule (principal); E11.9 Type 2 diabetes mellitus without complications; E78.5 Hyperlipidemia, unspecified; I10 Essential (primary) hypertension; M10.9 Gout, unspecified
CPT/HCPCS: 36415; 80048; 85027; 82043; 82570; 83036; 84443; 84460; 84550

== ENCOUNTER → 2022-03-05 13:26 | Outpatient (BNVA) | payer MEDICARE, SELFPAY | PROVIDERS: PCP Family Medicine; Referring Provider Family Medicine; Visit Provider Psychiatry & Neurology Neurology | DX: I10 Essential (primary) hypertension (principal); E11.9 Type 2 diabetes mellitus without complications; G20 Parkinson's disease; K59.00 Constipation, unspecified; R53.83 Other fatigue | CPT/HCPCS: 99214 ==

== ENCOUNTER → 2022-06-19 13:57 | Outpatient (BNVA) | payer MEDICARE, SELFPAY | PROVIDERS: PCP Family Medicine; Referring Provider Family Medicine; Visit Provider Psychiatry & Neurology Neurology | DX: I10 Essential (primary) hypertension (principal); E11.9 Type 2 diabetes mellitus without complications; G20 Parkinson's disease; K59.00 Constipation, unspecified; R53.83 Other fatigue | CPT/HCPCS: 99213 ==

== ENCOUNTER 2022-06-27 03:16 | Outpatient (CLI) | payer MEDICARE, SELFPAY ==
[2022-06-27 10:14] LABS: Abs Immature Grans 0.02 10^3/uL (0.0-0.06); Absolute Basophil Count 0.06 10^3/uL (0.0-0.2); Absolute Lymphocyte Count 1.98 10^3/uL (1.2-3.4); Absolute Monocyte Count 0.48 10^3/uL (0.1-0.8); Absolute Neutrophil Count 3.15 10^3/uL (1.2-6.7); Eosinophils % 3.4; HCT 41.2 % (40.0-50.0); HGB 13.4 g/dL (13.5-17.5); Immature Grans % 0.3; Lymphocytes % 33.6; MCH 29.5 pg (27.0-33.0); MCHC 32.5 % (32.0-36.0); MCV 91 fL (80-95); MPV 10.6 fL (8.0-11.0); Monocytes % 8.1; Neutrophils % 53.6; Platelet Count 205 10^3/uL (130-400); RBC 4.54 10^6/uL (4.36-5.78); RDW 12.8 % (11.8-14.1); RDW-SD 42.7 fL; WBC 5.89 10^3/uL (4.4-10.8)
[2022-06-27 10:29] LABS: ALT 11 U/L (16-63); AST 20 U/L (15-37); Albumin 3.9 g/dL (3.4-5.0); Alkaline Phosphatase 69 U/L (46-116); Anion Gap 6.3 mmol/L (3-11); BUN 23 mg/dL (7-18); Bilirubin, Total 0.5 mg/dL (0.2-1.0); CO2 29.7 mmol/L (21.0-32.0); CREATININE 1.3 mg/dL (0.70-1.30); Chloride 106 mmol/L (98-107); Estimated GFR 53.84 (mL/min/1.73m2); Glucose 116 mg/dL (74-106); LDH 136 U/L (85-227); Potassium 4.6 mmol/L (3.5-5.1); Sodium 142 mmol/L (136-145); Total Protein 6.9 g/dL (6.4-8.2)
== END 2022-06-27 03:17 | disposition home or self-care (01) ==
PROVIDERS: PCP Family Medicine; Visit Provider Nurse Practitioner Adult Health
DX: C85.80 Other specified types of non-Hodgkin lymphoma, unspecified site (principal)
CPT/HCPCS: 36415; 80053; 83615; 85025

== ENCOUNTER → 2022-09-11 13:28 | Outpatient (BNVA) | payer MEDICARE, SELFPAY | PROVIDERS: PCP Family Medicine; Referring Provider Family Medicine; Visit Provider Psychiatry & Neurology Neurology | DX: G20 Parkinson's disease (principal); K59.00 Constipation, unspecified; R53.83 Other fatigue | CPT/HCPCS: 99213 ==

== ENCOUNTER 2022-09-16 01:30 | Outpatient (CLI) | payer MEDICARE, SELFPAY ==
[2022-09-16 14:04] LABS: Hemoglobin A1C 7.3 % (<5.7)
== END 2022-09-16 01:31 | disposition home or self-care (01) ==
PROVIDERS: PCP Family Medicine; Visit Provider Family Medicine
DX: E11.9 Type 2 diabetes mellitus without complications (principal); Z79.4 Long term (current) use of insulin
CPT/HCPCS: 36415; 83036

== ENCOUNTER 2022-11-11 04:25 | Outpatient (CLI) | payer MEDICARE, SELFPAY ==
[2022-11-12 10:48] LABS: Lyme Ab w Rflx to Lyme Confirm Negative (Negative)
[2022-11-13 18:28] LABS: Anaplasma phagocytophilum Negative (Negative); B. miyamotoi PCR Negative (Negative); Babesia divergens/MO-1 Negative (Negative); Babesia duncani Negative (Negative); Babesia microti Negative (Negative); Ehrlichia chaffeensis Negative (Negative); Ehrlichia ewingii/canis Negative (Negative); Ehrlichia muris eauclairensis Negative (Negative)
== END 2022-11-11 04:26 | disposition home or self-care (01) ==
LOC: LBO 04:25
PROVIDERS: PCP Family Medicine; Visit Provider Family Medicine
DX: R53.83 Other fatigue (principal); Z11.8 Encounter for screening for other infectious and parasitic diseases
CPT/HCPCS: 36415; 87798; 86618

== ENCOUNTER 2022-11-13 07:58 | Emergency (ER) | payer MEDICARE, SELFPAY ==
[2022-11-13 08:04] VITALS: BP 130/82; PULSE 85; TEMP 37; O2SAT 98
--- NOTE | 2022-11-13 08:15 | DI.US_ITS ---
Exam(s) US LOWER EXTREMITY VENOUS RT EXAM: US LOWER EXTREMITY VENOUS RT CLINICAL HISTORY: leg swelling TECHNIQUE: Right lower extremity venous ultrasound performed using grayscale, color-flow, and spectr al Doppler analysis. COMPARISON: No exams were available for comparison FINDINGS: The right common femoral, femoral and popliteal veins demonstrate normal compressibility, augmentatio n, and color Doppler. The posterior tibial and peroneal veins are patent. The saphenofemoral junctio n is unremarkable. There is a 4.3 x 0.8 x 5.1 cm popliteal cyst. The soft tissues are unremarkable. IMPRESSION: 1. No evidence of a right lower extremity DVT. 2. Popliteal cyst. 3. Findings were discussed with the emergency department on the date of the examination. DATA REPOSITORY:
--- NOTE | 2022-11-13 08:15 | DI.RAD_ITS ---
Exam(s) XR CHEST 2V PA LATERAL EXAM: XR CHEST 2V PA LATERAL CLINICAL HISTORY: AMEZCUA TECHNIQUE: 2D digital imaging was performed of the chest. Three images were obtained. PA and later al views were obtained. COMPARISON: CR,XR XR CHEST 2V PA LATERAL from 12/03/2019 FINDINGS: MEDIASTINUM: Normal. HEART: Normal. PULMONARY VASCULATURE: Normal. LUNGS: Clear. PLEURAL SPACE: No pleural effusion or pneumothorax. BONE:Within normal limits for the patient's age. OTHER FINDINGS:Normal. IMPRESSION: No acute pulmonary findings. DATA REPOSITORY: RADIATION DOSE DELIVERED:
--- NOTE | 2022-11-13 08:15 | RT.EKG_ITS ---
APPROVED REPORT Exam: Resting ECG Reason for Exam: AMEZCUA Patient Location: E HR:88 bpm ECG Measurements Heart Rate 88 AXIS CO [id number] P [id number] QRSd 88 QRS -53 QT 386 T 42 QTc 467 Conclusion Accelerated junctional rhythm...absent P waves, accele'd V-rate Inferior infarct, old...Q >35mS, II III aVF Accelerated junctional rhythm...absent P waves, accele'd V-rate, when compared to prior 01/12/19 nawaf stern in first degree heart block
--- NOTE | 2022-11-13 08:25 | W.ED.GENAD ---
Discharge Plan Disposition Patient Disposition: Home Discharge Details Clinical Impression: Popliteal cyst, unruptured, Right leg swelling Primary Care Provider: Jatin Day ED Provider: Citlali Sheikh Home Meds and New Rx's Prescriptions: No Action docusate sodium [Colace] 100 mg capsule 100 mg PO DAILY entacapone 200 mg tablet 200 mg PO TID Qty: 270 3RF Rx Instructions: administer at the same time as l-dopa/carbidopa dose insulin glargine [Lantus Solostar U-100 Insulin] 100 unit/mL (3 mL) insulin pen See Rx Instructions .ROUTE .COMPLEX Dose Instruction: INJECT SUBCUTANEOUSLY 22 UNITS DAILY Rx Instructions: INJECT SUBCUTANEOUSLY 20 UNITS DAILY vitamin E (dl, acetate) 1,000 UNIT capsule 1,000 unit PO DAILY metformin 1,000 mg tablet 1,000 mg PO BID Qty: 180 4RF lisinopril 20 mg tablet 20 mg PO DAILY Qty: 90 4RF Rx Instructions: take one tablet daily atorvastatin [Lipitor] 40 mg tablet 40 mg PO DAILY Qty: 90 4RF allopurinol [Zyloprim] 100 mg tablet 100 mg PO DAILY Qty: 90 3RF (DME) pen needle, diabetic [BD Ultra-Fine Bridget Pen Needle] 32 gauge x 5/32 needle 1 ea Miscellaneous DAILY Qty: 100 3RF Rx Instructions: LANTUS SOLASTAR PEN NEEDLES carbidopa-levodopa [Sinemet] 25-100 mg tablet 2 tab PO TID Qty: 540 3RF finasteride 5 mg tablet See Rx Instructions .ROUTE .COMPLEX Qty: 90 3RF Dose Instruction: TAKE 1 TABLET BY MOUTH DAILY Rx Instructions: TAKE 1 TABLET BY MOUTH DAILY (DME) Prodigy No Coding Strip See Rx Instructions .ROUTE .MEDSUPPLY Qty: 200 3RF Rx Instructions: test twice/day lorazepam 1 mg tablet 1 mg PO HS PRN (Reason: sleep) Qty: 25 0RF tamsulosin 0.4 mg capsule 0.8 mg PO HS Qty: 180 3RF Discharge Instructions Instructions: Buck Cyst (ED), Leg Edema (ED) Additional Instructions: Recommend close follow-up with your primary care doctor for further evaluation if you continue to have shortness of breath with exertion. Referrals: Piyush Galvan PA [[employer]] - (call for follow-up) Discharge Data Discharge Physician: Citlali Sheikh Medical Decision Making 87-year-old male with right leg pain and swelling as well as some dyspnea on exertion. Given patient's recent travel I am concerned about possible blood clot. Laboratory studies show mildly elevated D-dimer, otherwise unremarkable. EKG does not show any acute ischemic changes. Chest x-ray unremarkable. Ultrasound of right lower extremity shows 5 cm popliteal cyst. This is likely the cause of patient's discomfort. We discussed that it is too early to have developed Lyme arthritis from the tick bite 2 weeks ago. He does have additional Lyme testing pending at this time. We have discussed that it takes 4 to 6 weeks for Lyme test to become positive. Will hold on antibiotics at this time. I have recommended close follow-up with orthopedics for popliteal cyst. Patient and understand indications to return. Imaging Data Radiologic Study: Radiologist's impression: CXR - No acute disease Radiologic Study #2: Radiologist's impression: RLE US - No DVT, Popliteal cyst ECG Data Interpretation: No acute ischemia HPI General Date/Time Provider Initiated Documentation: 11/13/22 08:01. HPI Narrative: 87-year-old male with history of of Lyme arthritis, Parkinson's, diabetes, and hypertension presents for evaluation of possible Lyme disease. Patient states that 2 and half weeks ago he had a tick on his left upper thigh. He was able to remove the tick and the area has healed. He states that he did have a Lyme test taken last week which is reportedly normal. He has been having aches and pain in joints and feels that this is similar to his prior episode of Lyme. Patient did have recent trip to [place]. He also notes that he has had swelling in his right leg for the last 4 to 5 days. His states that he started complaining of some discomfort behind his right knee several days ago. Yesterday he was out in the yard gardening when his right leg gave out all of a sudden. He denies any chest pain. He states that he has had some dyspnea with exertion which resolves with rest. Denies any history of blood clots. He is not on any blood thinners. Denies any history of cardiac disease. He denies any rashes. No fevers or chills. Tolerating normal p.o. No urinary difficulty. Denies any back pain. Related Data Home Medications Medication Instructions Recorded Confirmed vitamin E (dl, acetate) 450 mg 1,000 unit PO DAILY 08/05/17 11/13/22 (1,000 unit) capsule metformin 1,000 mg tablet 1,000 mg PO BID #180 tabs 10/08/21 11/13/22 lisinopril 20 mg tablet 20 mg PO DAILY #90 tabs 11/01/21 11/13/22 atorvastatin 40 mg tablet (Lipitor) 40 mg PO DAILY #90 tabs 01/16/22 11/13/22 allopurinol 100 mg tablet 100 mg PO DAILY #90 tabs 03/18/22 11/13/22 (Zyloprim) pen needle, diabetic 32 gauge x ##100 04/12/22 11/13/22 (BD Ultra-Fine Bridget Pen Needle) carbidopa 25 mg-levodopa 100 mg 2 tab PO TID #540 tabs 05/29/22 11/13/22 tablet (Sinemet) insulin glargine 100 unit/mL (3 See Rx Instructions .Route .COMPLEX 06/19/22 11/13/22 mL) subcutaneous pen (Lantus Solostar U-100 Insulin) finasteride 5 mg tablet See Rx Instructions .Route 08/26/22 11/13/22 .COMPLEX #90 tabs docusate sodium 100 mg capsule 100 mg PO DAILY 09/11/22 11/13/22 (Colace) entacapone 200 mg tablet 200 mg PO TID #270 tabs 09/11/22 11/13/22 blood sugar diagnostic (Prodigy No #200 ea 10/18/22 11/13/22 Coding strips) lorazepam 1 mg tablet 1 mg PO HS PRN sleep #25 tab-caps 10/22/22 11/13/22 tamsulosin 0.4 mg capsule 0.8 mg PO HS #180 caps 11/11/22 11/13/22 Previous Rx's Medication Instructions Recorded metformin 1,000 mg tablet 1,000 mg PO BID #180 tabs 10/08/21 lisinopril 20 mg tablet 20 mg PO DAILY #90 tabs 11/01/21 atorvastatin 40 mg tablet (Lipitor) 40 mg PO DAILY #90 tabs 01/16/22 allopurinol 100 mg tablet 100 mg PO DAILY #90 tabs 03/18/22 (Zyloprim) pen needle, diabetic 32 gauge x ##100 04/12/22 (BD Ultra-Fine Bridget Pen Needle) carbidopa 25 mg-levodopa 100 mg 2 tab PO TID #540 tabs 05/29/22 tablet (Sinemet) finasteride 5 mg tablet See Rx Instructions .Route 08/26/22 .COMPLEX #90 tabs entacapone 200 mg tablet 200 mg PO TID #270 tabs 09/11/22 blood sugar diagnostic (Prodigy No #200 ea 10/18/22 Coding strips) lorazepam 1 mg tablet 1 mg PO HS PRN sleep #25 tab-caps 10/22/22 tamsulosin 0.4 mg capsule 0.8 mg PO HS #180 caps 11/11/22 Allergies Allergy/AdvReac Type Severity Reaction Status Date / Time oxycodone HCl AdvReac GI UPSET Verified 09/17/22 09:03 [From OxyContin] General Stated Complaint: GenMedical STANLEY: 3 Review of Systems Narrative: Remainder of review of systems otherwise negative except for as noted in the HPI x10. PFSH All Active Problems (Updated 11/13/22 @ 09:54 by Citlali Sheikh MD) Popliteal cyst, unruptured (Acute) Right leg swelling (Acute) Fatigue (Acute) BCC (basal cell carcinoma of skin) (Acute) 2021-lesion back, followed by Derm at [facility] [place] Lyme disease (Acute) about 2018 assoc with arthritis-otherwise resolved, mild Thyroid nodule (Acute) 03/2021-multinodular thyroid large nodule, right lobe, FNA recommended Pharyngoesophageal dysphagia (Acute) Gait instability (Acute) Parkinson disease (Chronic) Hearing loss (Acute) Diabetes mellitus (Chronic 10/20/12) 06/2021-mild neuropathy of feet Essential hypertension (Chronic 03/19/13) Gout (Chronic) Kidney stone (Chronic) 4 episodes. 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 Last seen 03/2019 Hyperlipidemia (Chronic 10/20/12) Medical History Hx of Lyme disease Impacted cerumen, bilateral Impairment of speech discrimination Sensorineural hearing loss, bilateral Surgical History Boil States he had a boil tajen out of the left side of his neck. H/O arthroscopy of knee Hx of tonsillectomy Status post cataract extraction Family History Mother , AGE 89 Heart disease Father , AGE 68 Diabetes Essential hypertension Lung cancer Sister , AGE 65 Essential hypertension Hyperlipidemia Cancer Brother , AGE 66 Diabetes Hyperlipidemia Lung cancer Brother , age 88 Diabetes Heart disease Maternal Grandfather , age 69 No problems noted. Paternal Grandfather , AGE 73 No problems noted. Maternal Grandmother , age 71 No problems noted. Paternal Grandmother , AGE 78 Cancer Son Depression Son No problems noted. Son No problems noted. Social History Smoking/Tobacco Use Status: Never Second Hand Exposure: Yes Smoking risk assessment performed?: Yes Alcohol Intake: current Alcohol Intake frequency: a few times a month Alcohol type: beer Drug use: Never Substance use type: does not use Counseling provided: none Caregiver/Support person: No Household members: spouse Housing: house Communication Needs: None Do you need help understanding health information?: Rarely Pets and animals: No Sexually active: No Do you think of yourself as: straight/heterosexual Current gender identity: male What is your relationship status?: How often do you talk on the phone with friends or family?: twice per week How often do you get together with friends or relatives?: once per week How often do you attend tenriism or gnosticist services?: decline to answer Do you belong to any clubs or organized social groups?: yes Panel score (0-1 are the most socially isolated patients): 3 What type of physical activity do you participate in: yoga Duration: 30-45 minutes/day Frequency: daily Jenny/Confucianism: No preference Special jenny needs: No Seatbelt use: always Helmet use: No Drive intox or ride w/intox fire truck driver: No Do you feel safe at home: Yes Do you feel safe in your relationship?: Yes Exam Narrative Exam Narrative: General: non-toxic, no respiratory distress, comfortable HEENT: normocephalic, atraumatic, lids and lashes normal, PERRL, EOMI, anicteric sclera, no conjunctival injection, moist oral mucosa Card: regular rate and rhythm, S1S2, + murmur, no rubs or gallops Lungs: good air entry, clear to auscultation bilaterally. no wheezes, rales, rhonchi, or retractions Abd: soft, non-tender, non-distended, normal bowel sounds, no rebound or guarding, no peritoneal signs Musculoskeletal: full range of motion of arms and legs, no tenderness to palpation. no clubbing or cyanosis, right lower extremity edema Back exam: no paraspinal tenderness, no mid-line tenderness, normal strength & sensation, negative SLR's, DTR's 2+ bilaterally Neurologic: appropriate for age, strength normal Psych: alert and oriented Skin: no petechiae, no lesions, warm and dry Course Vital Signs Vital signs: Vital Signs Temperature 37.0 C 11/13/22 08:04 Pulse 85 11/13/22 08:04 Blood Pressure 130/82 11/13/22 08:04 Pulse Oximetry 98 11/13/22 08:04 Temperature 37.0 C 11/13/22 08:04 Temperature Source Oral 11/13/22 08:04 Pulse 85 11/13/22 08:04 Respiratory Effort Normal, Non-Labored 11/13/22 08:19 Blood Pressure 130/82 11/13/22 08:04 Pulse Oximetry 98 11/13/22 08:04 Oxygen Delivery Method Room Air 11/13/22 08:04 Oxygen Flow Rate 0 11/13/22 08:04 Pain Level 2 11/13/22 08:04
[2022-11-13 08:40] LABS: Abs Immature Grans 0.01 10^3/uL (0.0-0.06); Absolute Basophil Count 0.06 10^3/uL (0.0-0.2); Absolute Eosinophil Count 0.22 10^3/uL (0.0-0.7); Absolute Lymphocyte Count 2.69 10^3/uL (1.2-3.4); Absolute Monocyte Count 0.55 10^3/uL (0.1-0.8); Absolute Neutrophil Count 4.71 10^3/uL (1.2-6.7); Basophils % 0.7; Eosinophils % 2.7; HCT 42.3 % (40.0-50.0); HGB 14.1 g/dL (13.5-17.5); Immature Grans % 0.1; Lymphocytes % 32.6; MCH 29.4 pg (27.0-33.0); MCHC 33.3 % (32.0-36.0); MCV 88 fL (80-95); MPV 10.8 fL (8.0-11.0); Monocytes % 6.7; Neutrophils % 57.2; Platelet Count 196 10^3/uL (130-400); RBC 4.79 10^6/uL (4.36-5.78); RDW 12.6 % (11.8-14.1); WBC 8.24 10^3/uL (4.4-10.8)
[2022-11-13 08:54] LABS: ALT 10 U/L (16-63); AST 16 U/L (15-37); Albumin 4.1 g/dL (3.4-5.0); Alkaline Phosphatase 80 U/L (46-116); Anion Gap 9.9 mmol/L (3-11); BUN 27 mg/dL (7-18); Bilirubin, Total 0.6 mg/dL (0.2-1.0); CO2 27.1 mmol/L (21.0-32.0); CREATININE 1.3 mg/dL (0.70-1.30); Calcium 9.2 mg/dL (8.5-10.1); Chloride 101 mmol/L (98-107); Glucose 205 mg/dL (74-106); Magnesium 1.8 mg/dL (1.8-2.4); Potassium 4.4 mmol/L (3.5-5.1); Sodium 138 mmol/L (136-145); Total Protein 7.6 g/dL (6.4-8.2); Troponin I < 50 ng/L (<or=60)
[2022-11-13 09:13] LABS: D-Dimer 719 ng/mlFEU (<500)
[2022-11-13 11:01] VITALS: BP 130/82; PULSE 85; RESP 18; TEMP 37; O2SAT 98
[2022-11-14 10:33] LABS: Lyme Ab w Rflx to Lyme Confirm Negative (Negative)
[2022-11-16 19:20] LABS: Anaplasma phagocytophilum Negative (Negative); B. miyamotoi PCR Negative (Negative); Babesia divergens/MO-1 Negative (Negative); Babesia duncani Negative (Negative); Babesia microti Negative (Negative); Ehrlichia chaffeensis Negative (Negative); Ehrlichia ewingii/canis Negative (Negative); Ehrlichia muris eauclairensis Negative (Negative)
== END 2022-11-13 16:32 | disposition home or self-care (01) ==
PROVIDERS: Emergency Provider Emergency Medicine Emergency Medical Services; PCP Family Medicine
DX: M71.21 Synovial cyst of popliteal space [Baker], right knee (principal); R22.41 Localized swelling, mass and lump, right lower limb
CPT/HCPCS: 80053; 87798; 93005; 99285; 71046; 83735; 84484; 85025; 85379; 86618; 93010; 93971; 99284

== ENCOUNTER 2022-11-14 11:12 | Outpatient (CLI) | payer MEDICARE, SELFPAY ==
--- NOTE | 2022-11-14 09:02 | DI.RAD_ITS ---
Exam(s) XR KNEE RT 3V AP,LAT,CRICKET EXAM: XR KNEE RT 3V AP,LAT,CRICKET CLINICAL HISTORY: right knee pain. TECHNIQUE: 2D digital imaging was performed. Three views. COMPARISON: CR RIGHT KNEE COMPLETE from 06/08/2009 FINDINGS: BONES: No acute fracture is present. No bony destructive lesion is seen. Mild enthesophyte at the q uadriceps insertion. Minimal periarticular spurring. JOINTS: The knee is normally aligned. There is a question of a small joint effusion. The joint space s are maintained. Chondrocalcinosis is present. SOFT TISSUE: Vascular calcifications. IMPRESSION: Minimal degenerative changes and chondrocalcinosis. DATA REPOSITORY: RADIATION DOSE DELIVERED:
== END 2022-11-14 11:13 | disposition home or self-care (01) ==
LOC: DIORS 11:13
PROVIDERS: PCP Family Medicine; Referring Provider Family Medicine; Visit Provider Physician Assistant
DX: M11.261 Other chondrocalcinosis, right knee
CPT/HCPCS: 20610; 73562; J1040

== ENCOUNTER 2022-12-06 02:21 | Outpatient (CLI) | payer MEDICARE, SELFPAY ==
[2022-12-09 10:29] LABS: Lyme Ab w Rflx to Lyme Confirm Negative (Negative)
[2022-12-11 14:35] LABS: Anaplasma phagocytophilum Negative (Negative); B. miyamotoi PCR Negative (Negative); Babesia divergens/MO-1 Negative (Negative); Babesia duncani Negative (Negative); Babesia microti Negative (Negative); Ehrlichia chaffeensis Negative (Negative); Ehrlichia ewingii/canis Negative (Negative); Ehrlichia muris eauclairensis Negative (Negative)
== END 2022-12-06 02:22 | disposition home or self-care (01) ==
PROVIDERS: PCP Family Medicine; Visit Provider Family Medicine
DX: R53.83 Other fatigue (principal); R53.1 Weakness; Z86.19 Personal history of other infectious and parasitic diseases
CPT/HCPCS: 36415; 87798; 86618

== ENCOUNTER → 2023-03-13 14:52 | Outpatient (BNVA) | payer MEDICARE, SELFPAY | PROVIDERS: PCP Family Medicine; Referring Provider Family Medicine; Visit Provider Psychiatry & Neurology Neurology | DX: G20.C Parkinsonism, unspecified (principal); K59.00 Constipation, unspecified; R53.83 Other fatigue; I10 Essential (primary) hypertension | CPT/HCPCS: 99213 ==

== ENCOUNTER 2023-06-24 02:11 | Outpatient (CLI) | payer MEDICARE, SELFPAY ==
[2023-06-24 09:12] LABS: Abs Immature Grans 0.01 10^3/uL (0.0-0.06); Absolute Basophil Count 0.06 10^3/uL (0.0-0.2); Absolute Eosinophil Count 0.18 10^3/uL (0.0-0.7); Absolute Lymphocyte Count 2.34 10^3/uL (1.2-3.4); Absolute Monocyte Count 0.45 10^3/uL (0.1-0.8); Absolute Neutrophil Count 3.31 10^3/uL (1.2-6.7); Basophils % 0.9; Eosinophils % 2.8; HCT 40.6 % (40.0-50.0); HGB 13.8 g/dL (13.5-17.5); Immature Grans % 0.2; Lymphocytes % 36.9; MCH 29.6 pg (27.0-33.0); MCV 87 fL (80-95); MPV 10.6 fL (8.0-11.0); Monocytes % 7.1; Neutrophils % 52.1; Platelet Count 170 10^3/uL (130-400); RBC 4.67 10^6/uL (4.36-5.78); RDW 12.9 % (11.8-14.1); RDW-SD 40.8 fL; WBC 6.35 10^3/uL (4.4-10.8)
[2023-06-24 09:56] LABS: ALT 9 U/L (16-63); AST 13 U/L (15-37); Albumin 3.7 g/dL (3.4-5.0); Alkaline Phosphatase 51 U/L (46-116); Anion Gap 8.5 mmol/L (3-11); BUN 25 mg/dL (7-18); Bilirubin, Total 0.6 mg/dL (0.2-1.0); CO2 28.5 mmol/L (21.0-32.0); CREATININE 1.2 mg/dL (0.70-1.30); Calcium 9.2 mg/dL (8.5-10.1); Chloride 104 mmol/L (98-107); Estimated GFR 58.89 (mL/min/1.73m2); Glucose 202 mg/dL (74-106); LDH 120 U/L (85-227); Sodium 141 mmol/L (136-145); Total Protein 6.7 g/dL (6.4-8.2)
== END 2023-06-24 02:12 | disposition home or self-care (01) ==
LOC: LBO 02:11
PROVIDERS: PCP Family Medicine; Visit Provider Internal Medicine Hematology & Oncology
DX: C85.80 Other specified types of non-Hodgkin lymphoma, unspecified site (principal)
CPT/HCPCS: 36415; 80053; 83615; 85025

== ENCOUNTER → 2023-09-12 12:21 | Outpatient (CLI) | payer MEDICARE, SELFPAY ==
--- NOTE | 2023-09-12 | DI.RAD_ITS ---
Exam(s) XR KNEE RT 3V AP,LAT,CRICKET EXAM: XR KNEE RT 3V AP,LAT,CRICKET CLINICAL HISTORY: CONTUSION RT KNEE S80.01XA FALL 2 DAYS AGO. TECHNIQUE: 2D digital imaging was performed. Three views. A patellar view was attempted however the patient was extremely claustrophobic and would not permit a dditional imaging. COMPARISON: No exams were available for comparison FINDINGS: BONES: There is a nondisplaced fracture at the articular aspect of the patella without visible separa tion at the articular surface. No bony destructive lesion is seen. Enthesophyte at the Achilles ins ertion. JOINTS: The knee is normally aligned. A small joint effusion is seen. The joint spaces are maintained . Chondrocalcinosis. SOFT TISSUE: Prepatellar soft tissue swelling. Vascular calcifications. IMPRESSION: Prepatellar soft tissue swelling. Nondisplaced patellar fracture. DATA REPOSITORY: RADIATION DOSE DELIVERED:
== END ==
PROVIDERS: PCP Family Medicine; Visit Provider Nurse Practitioner Family
DX: S80.01XA Contusion of right knee, initial encounter (principal); X58.XXXA Exposure to other specified factors, initial encounter; S82.035D Nondisplaced transverse fracture of left patella, subsequent encounter for closed fracture with routine healing
CPT/HCPCS: 73562

== ENCOUNTER 2023-09-24 15:33 | Outpatient (CLI) | payer MEDICARE, SELFPAY ==
--- NOTE | 2023-09-24 09:30 | DI.RAD_ITS ---
Exam(s) XR KNEE RT 3V AP,LAT,CRICKET EXAM: XR KNEE RT 3V AP,LAT,CRICKET INDICATION: F/U R PATELLA FRACTURE. COMPARISON: CR XR KNEE RT 3V AP,LAT,CRICKET from 09/12/2023 TECHNIQUE: 2D digital imaging was performed. Three views. FINDINGS: there has been no change in the alignment of the fracture extending in the sagittal plane through the lateral aspect of the patella. Minimal separation at the articular surface. Femoral tibial joint s paces are maintained. Chondrocalcinosis and vascular calcifications noted. Anterior skin swelling r emains present. Impression: Stable alignment of patellar fracture. DATA REPOSITORY: RADIATION DOSE DELIVERED:
== END 2023-09-24 15:34 | disposition home or self-care (01) ==
LOC: DIORS 15:33
PROVIDERS: PCP Family Medicine; Referring Provider Family Medicine
DX: S82.001D Unspecified fracture of right patella, subsequent encounter for closed fracture with routine healing (principal); X58.XXXD Exposure to other specified factors, subsequent encounter
CPT/HCPCS: 73562; 99213

== ENCOUNTER 2023-10-22 15:56 | Outpatient (CLI) | payer MEDICARE, SELFPAY ==
--- NOTE | 2023-10-22 10:30 | DI.RAD_ITS ---
Exam(s) XR KNEE RT 2V AP,LAT EXAM: XR KNEE RT 2V AP,LAT CLINICAL HISTORY: F/U FRACTURE. TECHNIQUE: 2D digital imaging was performed of the right knee. Two views obtained. AP and lateral views were obtained. COMPARISON: CR XR KNEE RT 3V AP,LAT,CRICKET from 09/24/2023 FINDINGS: BONES: There has been no change in alignment of the fracture involving the lateral aspect of the rice lla. No new fracture is seen. No bony destructive lesion is seen. JOINTS: The knee is normally aligned. Stable spurring is seen at the posterior patella. Chondrocalci nosis is present. There is a small joint effusion. SOFT TISSUE: Vascular calcifications are present. IMPRESSION: Stable alignment of the patellar fracture. DATA REPOSITORY: RADIATION DOSE DELIVERED:
== END 2023-10-22 15:57 | disposition home or self-care (01) ==
LOC: DIORS 15:56
PROVIDERS: PCP Family Medicine; Referring Provider Family Medicine; Visit Provider Student in an Organized Health Care Education/Training Program
DX: S82.024D Nondisplaced longitudinal fracture of right patella, subsequent encounter for closed fracture with routine healing (principal); X58.XXXD Exposure to other specified factors, subsequent encounter
CPT/HCPCS: 99213; 73560

== ENCOUNTER → 2023-10-23 01:12 | Outpatient (CLI) | payer MEDICARE, SELFPAY ==
--- NOTE | 2023-10-23 08:30 | DI.US_ITS ---
APPROVED REPORT EXAM: Comprehensive 2D, Doppler, and color-flow Echocardiogram Patient Location: Out-Patient Mechanic'S Assistant: Lizy Sung RDCS (AE) Indications: AMEZCUA dn reassess ascending aortic aneurysm, essential HTN Other Information Study Quality: Fair. Technically limited study due to inability to position patient exam done supine, unable to stay still. Conclusion Normal left ventricular wall thickness and chamber size. Ejection fraction is 60%. Wall motion is n ormal Normal right ventricular size and function Both atria are normal in size Aortic valve is sclerotic and probably trileaflet. There is moderate aortic stenosis. Highest mean gradient is 29 mm Hg. calculated aortic valve area is 1.6 cm??. There is no aortic regurgitation Mitral annular calcification. Mild mitral regurgitation Estimated right ventricular systolic pressure is 21 mmHg Ascending aorta measures 4.1 cm Wall motion Left Ventricle The left ventricle is normal size. The left ventricular systolic function is normal. The left ventric ular ejection fraction is within the normal range. There is normal left ventricular wall thickness. T here is normal LV segmental wall motion. There is no ventricular septal defect visualized. LVEF is 60 %. Right Ventricle The right ventricle is normal size. The right ventricular systolic function is normal. Atria The left atrium size is normal. The right atrium size is normal. The interatrial septum is intact wit h no evidence for an atrial septal defect. Aortic Valve Aortic valve is calcified. Aortic valve is probably trileaflet. Moderate aortic stenosis. Highest segundo n aortic valve gradient is29.11_mmHg. Peak aortic valve gradient is 38.823mmHg. Calculated SHANTA by the continuity equation is 1.6cm2. No aortic regurgitation is present. Mitral Valve Mild to Moderate mitral annular calcification. No evidence of mitral valve stenosis. Mild mitral regu rgitation. Tricuspid Valve The tricuspid valve is normal in structure. There is no tricuspid valve stenosis. Trace to mild tricu spid regurgitation. The RVSP is 21.3 mmHg. Pulmonic Valve The pulmonary valve is normal in structure. There is no pulmonic valvular stenosis. Trace to mild pul nilson regurgitation. Great Vessels The aortic root is normal in size. The ascending aorta is mild to moderately dilated. Aortic arch is not well visualized. IVC is normal in size and collapses >50% with inspiration. Pericardium Technically limited subcostal imaging. 2D Dimensions IVSD d PLAX 1.05 cm M: 0.6-1.2 Ao Root d 3.49 cm M: 3.1 - 3.7 LVPW d PLAX 1.08 cm M: 0.6 - 1.2 Ao Asc Diam d 4.06 cm M: 2.6 - 3.4 LVID d PLAX 5.02 cm M: 4.2 - 5.8 LVDs 3.39 cm M: 2.5 - 4.0 LV EF Teichholz 60.5 % FS 32.41 % LV EDV (Teich) 119.2 mL LV ESV (Teich) 47.1 mL M-Mode TAPSE 2.63 cm (M/F) >1.7 Auto EF LV EDV A4C 117.6 mL LV EDV A2C 150.0 mL LV EDV BP 132.9 mL LV ESV A4C 46.6 mL LV ESV A2C 52.9 mL LV ESV BP 49.6 mL LVEF(%) A4C 60.4 % LVEF(%) A2C 64.8 % LVEF(%) BP 62.7 % LV SV A4C 71.0 ml LV SV A2C 97.2 ml LV SV BP 83.3 ml LV CO A4C 4.1 L/min LV CO A2C 5.8 L/min LV CO BP 4.9 L/min HR A4C 57.60 BPM HR A2C 59.31 BPM LV EDV Index (BP) LA Volume LA Length A4C 5.6 cm LA Length A2C 5.7 cm LA Area A4C s 18.92 cm2 LA Area A2C s 24.19 cm2 LA Vol A4C A-L 54.10 mL LA Vol A2C A-L 86.55 mL LA Vol Biplane A-L 69.2 mL LA Vol/BSA A4C A-L LA Vol/BSA A2C A-L LA Vol/BSA BP A-L 34.6 mL/m2 LA Vol A4C MOD 49.9 mL LA Vol A2C MOD 80.5 mL LA Vol BP MOD 64.0 mL RA Volume RA Area A4C 15.0 cm2 RA ESV A4C (A-L) 32.6mL RA Vol/BSA A4C A-L RA Length A4C 5.9 cm RA ESV A4C (MOD) 31.4mL LV Diastology MV E' medial 0.071 (>0.07 m/s) MV E' lateral 0.082 (>0.1 m/s) Aortic Valve AoV Vmax 3.12 m/s LVOT Vmax 1.28 m/s AoV Peak Grad 38.8 mmHg LVOT Peak Grad 6.6 mmHg AoV Area (Vmax) 1.58 cm2 LVOT VTI 0.317 m AoV VTI 0.740 m LVOT Mean Grad 4.0 mmHg AoV Mean Keenan. 2.63 m/s LVOT SV 121.66 mL AoV Mean Grad 29.1 mmHg LVOT Diam s 2.20 cm AoV Area (VTI) 1.64 cm2 Velocity Ratio 0.41 Mitral Valve MV Vmax TIPS 1.77 m/s MV Mean Grad 3.8 (<2mmHg) MV VTI 0.324 m Pulmonary Valve PV Vmax 0.98 (0.5-1.5 m/s) RVOT Vmax 0.88 m/s PV Peak Grad 3.9 mmHg RVOT Peak Gr. 3.1 mmHg PV Mean Keenan 0.77 m/s RVOT VTI 0.156 m PV Mean Grad 2.6 mmHg RVOT Mean Gr. 1.4 mmHg Tricuspid Valve RA Pressure 3.00 mmHg TR Vmax 2.14 m/s TR Peak Grad 18.3 mmHg RVSP (TR) 21.3 mmHg
== END ==
PROVIDERS: PCP Family Medicine; Visit Provider Family Medicine
DX: I10 Essential (primary) hypertension (principal)
CPT/HCPCS: 93306

== ENCOUNTER 2023-11-07 10:10 | Outpatient (CLI) | payer MEDICARE, SELFPAY ==
--- NOTE | 2023-11-07 10:00 | RT.EKG_ITS ---
APPROVED REPORT Exam: Resting ECG Reason for Exam: bradycardia Patient Location: O HR:79 bpm ECG Measurements Heart Rate 79 AXIS NE 238 P 0 QRSd 96 QRS -46 QT 417 T 45 QTc 479 Conclusion Second degree AV block, Mobitz II...multiple P waves Probable left atrial enlargement...P >50mS, <-0.10mV V1 Left axis deviation...QRS axis (-30,-90) Borderline prolonged QT interval...QTc >475mS Baseline wander in lead(s) V3 Consider A-V dissociation
== END 2023-11-07 10:11 | disposition home or self-care (01) ==
LOC: DI.CM 10:11
PROVIDERS: PCP Family Medicine; Visit Provider Nurse Practitioner Family
DX: R00.1 Bradycardia, unspecified (principal); I44.0 Atrioventricular block, first degree; I35.0 Nonrheumatic aortic (valve) stenosis
CPT/HCPCS: 93010

== ENCOUNTER 2023-11-07 10:39 | Emergency (ER) | payer MEDICARE, SELFPAY ==
[2023-11-07] VITALS (40 sets, daily range): BP systolic 135–211; BP diastolic 65–91; PULSE 41–85; RESP 13–28; TEMP 36.4; O2SAT 97
--- NOTE | 2023-11-07 10:30 | RT.EKG_ITS ---
APPROVED REPORT Exam: Resting ECG Reason for Exam: Bradycardia Patient Location: E HR:81 bpm ECG Measurements Heart Rate 81 AXIS WI 372 P 61 QRSd 102 QRS -39 QT 367 T 21 QTc 426 Conclusion first degree block raine
--- NOTE | 2023-11-07 10:46 | ED.GENADUL_ITS ---
Discharge Plan Disposition Patient Disposition: Home Condition: Stable Discharge Details Clinical Impression: Atrioventricular block, first degree, Fatigue, AV block, Mobitz 1, Bigeminal rhythm, Hypomagnesemia Primary Care Provider: Jatin Day ED Provider: Cielo Murray Home Meds and New Rx's Prescriptions: Continued docusate sodium [Colace] 100 mg capsule 100 mg PO DAILY entacapone 200 mg tablet 200 mg PO TID Qty: 270 3RF Rx Instructions: administer at the same time as l-dopa/carbidopa dose finasteride 5 mg tablet See Rx Instructions .ROUTE .COMPLEX Qty: 90 3RF Dose Instruction: TAKE 1 TABLET BY MOUTH DAILY Rx Instructions: TAKE 1 TABLET BY MOUTH DAILY vitamin E (dl, acetate) 1,000 UNIT capsule 1,000 unit PO DAILY (DME) pen needle, diabetic [BD Ultra-Fine Bridget Pen Needle] 32 gauge x 5/32 needle 1 ea Miscellaneous DAILY Qty: 100 3RF Rx Instructions: LANTUS SOLASTAR PEN NEEDLES (DME) Prodigy No Coding Strip See Rx Instructions .ROUTE .MEDSUPPLY Qty: 200 3RF Rx Instructions: test twice/day lorazepam 1 mg tablet 1 mg PO HS PRN (Reason: sleep) Qty: 25 0RF metformin 1,000 mg tablet 1,000 mg PO BID Qty: 180 4RF tamsulosin 0.4 mg capsule 0.8 mg PO HS Qty: 180 3RF allopurinol [Zyloprim] 100 mg tablet 100 mg PO DAILY Qty: 90 3RF atorvastatin [Lipitor] 40 mg tablet 40 mg PO DAILY Qty: 90 4RF insulin glargine [Lantus Solostar U-100 Insulin] 100 unit/mL (3 mL) insulin pen See Rx Instructions .ROUTE .COMPLEX Qty: 15 3RF Dose Instruction: INJECT SUBCUTANEOUSLY 22 UNITS DAILY Rx Instructions: INJECT SUBCUTANEOUSLY 20 UNITS DAILY carbidopa-levodopa [Sinemet] 25-100 mg tablet 2 tab PO TID Qty: 540 3RF lisinopril 20 mg tablet 5 mg PO DAILY Rx Instructions: dose reduce 09/30/23 Discharge Instructions Instructions: Heart block in adults, Fatigue ED Additional Instructions: Holter monitor has been ordered. You will be contacted from the cardiology clinic to schedule appointment for placement. Please also follow-up with your social service manager regarding these new findings. Please continue to monitor your symptoms, please rest when your symptoms worsen. If you develop chest pain, shortness of breath or other new/worsening symptoms please seek care urgently once again. Please follow-up with your primary care in the next week for reevaluation. Referrals: Corina Crespo MD [ [facility] STAFF PHYSICIAN] - Jatin Day MD [Primary Care Provider] - Discharge Data Discharge Date/Time-TO BE ENTERED AT DEPARTURE: 11/07/23 14:19 HPI General Date/Time Provider Initiated Documentation: 11/07/23 10:45 . Limitations to Documentation: no limitations . Information obtained by: patient, family (, Lisha), RN notes reviewed and old records reviewed . History of Present Illness 88 year old M presents to the emergency department with the chief complaint of bradycardia, dizziness, fatigue, AMEZCUA, described as moderate, Quality is described as other (denies any pain), Patient started experiencing this month(s) and it has been intermittent. No relieving factors improve symptom(s), Movement worsens symptoms . Patient notes shortness of breath; denies chest pain, cough, fever/chills, headaches, loss of appetite, nausea/vomiting, syncope and weakness. Patient did receive the following treatments prior to arrival, none Related Data Home Medications Medication Instructions Recorded Confirmed vitamin E (dl, acetate) 450 mg 1,000 unit PO DAILY 08/05/17 11/07/23 (1,000 unit) capsule pen needle, diabetic 32 gauge x ##100 04/12/22 11/07/2332 (BD Ultra-Fine Bridget Pen Needle) docusate sodium 100 mg capsule 100 mg PO DAILY 09/11/22 11/07/23 (Colace) blood sugar diagnostic (Prodigy No #200 ea 10/18/22 11/07/23 Coding strips) lorazepam 1 mg tablet 1 mg PO HS PRN sleep #25 tab-caps 10/22/22 11/07/23 metformin 1,000 mg tablet 1,000 mg PO BID #180 tabs 12/14/22 11/07/23 tamsulosin 0.4 mg capsule 0.8 mg (2 x 0.4 mg) PO HS #180 caps 02/06/23 11/07/23 allopurinol 100 mg tablet 100 mg PO DAILY #90 tabs 02/18/23 11/07/23 (Zyloprim) atorvastatin 40 mg tablet (Lipitor) 40 mg PO DAILY #90 tabs 02/18/23 11/07/23 entacapone 200 mg tablet 200 mg PO TID #270 tabs 03/13/23 11/07/23 insulin glargine 100 unit/mL (3 See Rx Instructions .Route 09/15/23 11/07/23 mL) subcutaneous pen (Lantus .COMPLEX #15 mL Solostar U-100 Insulin) carbidopa 25 mg-levodopa 100 mg 2 tab PO TID #540 tabs 09/16/23 11/07/23 tablet (Sinemet) finasteride 5 mg tablet See Rx Instructions .Route 09/30/23 11/07/23 .COMPLEX #90 tabs lisinopril 20 mg tablet 5 mg PO DAILY 11/07/23 11/07/23 Previous Rx's Medication Instructions Recorded pen needle, diabetic 32 gauge x ##100 04/12/22 (BD Ultra-Fine Bridget Pen Needle) blood sugar diagnostic (Prodigy No #200 ea 10/18/22 Coding strips) lorazepam 1 mg tablet 1 mg PO HS PRN sleep #25 tab-caps 10/22/22 metformin 1,000 mg tablet 1,000 mg PO BID #180 tabs 12/14/22 tamsulosin 0.4 mg capsule 0.8 mg (2 x 0.4 mg) PO HS #180 caps 02/06/23 allopurinol 100 mg tablet 100 mg PO DAILY #90 tabs 02/18/23 (Zyloprim) atorvastatin 40 mg tablet (Lipitor) 40 mg PO DAILY #90 tabs 02/18/23 entacapone 200 mg tablet 200 mg PO TID #270 tabs 03/13/23 insulin glargine 100 unit/mL (3 See Rx Instructions .Route 09/15/23 mL) subcutaneous pen (Lantus .COMPLEX #15 mL Solostar U-100 Insulin) carbidopa 25 mg-levodopa 100 mg 2 tab PO TID #540 tabs 09/16/23 tablet (Sinemet) finasteride 5 mg tablet See Rx Instructions .Route 09/30/23 .COMPLEX #90 tabs Allergies Allergy/AdvReac Type Severity Reaction Status Date / Time oxycodone HCl AdvReac GI UPSET Verified 11/07/23 11:03 [From OxyContin] General STANLEY: 3 Review of Systems Constitutional Constitutional: Reports as per HPI, Denies chills, Denies fever(s), Denies headache(s) and Denies poor appetite Eyes Eyes: Denies change in vision ENT Ears, Nose, Mouth, and Throat: Reports dizziness and Denies headache(s) Cardiovascular Cardiovascular: Reports as per HPI, Denies chest pain, Denies syncope, Denies pedal edema, Denies edema, Denies irregular heart rhythm, Denies leg ulcers, Denies leg edema, Reports lightheadedness and Reports slow heart rate Respiratory Respiratory: Reports as per HPI, Denies chest congestion, Denies cough, Denies pain on inspiration and Denies pain with cough Gastrointestinal Gastrointestinal: Reports as per HPI, Denies abdominal pain, Denies diarrhea, Denies nausea and Denies vomiting Genitourinary Genitourinary: Denies system reviewed and no additional complaints, except as documented (denies change in urinary habits) Integumentary/Breasts Skin/Breast: Reports as per HPI and Denies rash Neurologic Neurologic: Reports as per HPI, Reports dizziness, Denies syncope and Denies headache(s) Psychiatric Psychiatric: Reports anxiety Exam Const General: cooperative, healthy appearing, comfortable, no acute distress, well developed and anxious Nutritional Appearance: average body habitus and well nourished Orientation: alert, awake and oriented x3 HENMT Head: normal to inspection Ears: hearing grossly normal bilaterally Mouth: moist mucous membranes Chest Chest: normal inspection of the chest, normal palpation of entire chest wall and no crepitus Resp Effort & Inspection: normal respiratory effort, able to speak in complete sentences and no respiratory distress Auscultation: clear to auscultation bilaterally, no rales, no rhonchi and no wheezes Cardio Rate: regular rate Rhythm: regular rhythm Heart Sounds: murmur systolic GI Inspection: normal to inspection, no edema and non-distended Palpation: soft, no hepatosplenomegaly, not firm, no guarding, not rigid and nontender Auscultation: normal bowel sounds Back/Spine/Pelvis Back: no CVA tenderness Thoracic/Lumbar Spine: thoracic and lumbar spine normal to inspection Skin General skin exam: no rashes or lesions noted Trauma: no lacerations or abrasions Neuro General: patient alert, patient awake and patient oriented x3 Cognition: normal cognition Speech: speech normal Gait: normal gait Extrem General: normal to inspection, capillary refill normal, no pedal edema, no calf tenderness and normal gait Psych Appearance: grossly normal and well kempt Mental Status: mental status grossly normal Speech and Movement: speech and movement normal Mood: anxious mood Medical Decision Making Patient is a pleasant 88-year-old male sent in by PCP with concern for bradycardia. Past medical history significant for Lyme disease, Parkinson's, BPH, diabetes, hypertension, gout, hyperlipidemia, lymphoma. Patient reports that his chronic dyspnea on exertion for the past few years. However, this is increased in the past 6 weeks and he has also been much more fatigued than typical. He finds that simple activities such as gardening can cause him to become incredibly fatigued and short of breath. He states that he can also have some episodes of lightheadedness. These do not necessarily resolve immediately with rest, states that they can last for about 20 minutes. He denies any chest pain. Denies any GI upset. Has not had any history of pulmonary issues. States that last night, he checked his vital signs and was noted to be hypotensive after gardening. This morning awoke and rechecked his blood pressure which was normal at that time but his heart rate was in the 30s. He denies any symptoms currently. He did have a increase in his Parkinson's medication dosing about 6 weeks ago, occurring around the same time that the symptoms began to progress. On exam, patient appears nontoxic. He is resting comfortably, he does appear slightly anxious. He has 2+ distal pulses, equal bilaterally in upper and lower extremities. He has notable systolic murmur which patient reports is chronic. He is seen by cardiology here and did have an echo recently. Has a history of aortic stenosis and echo shows new mitral regurg as well. EF of 60%. His lungs are clear. Normal abdominal exam. No lower extremity edema, no calf pain. Rhythm strip concern for first degree block, ECG had bigeminy. However, both could also represent a 3rd degree heart block as there is some P wave buried, unclear if truly conducting. Rate is faster than typical 3rd heart block, even without PVC. Unclear exact underlying rhythm but patient has not been bradycardic here. With this rhythm in mind, iwll apply pads and continue to monitor. With patient's history of Lyme, did consider Lyme carditis although this was a few years ago and he reports that he was treated with abx. With the increased fa tigue beginning prior to this, considered recurrent infection. Will review medications, assess electrolytes, TSH. Also considered ischemic cause and will assess troponin. Will send images to , consult with EP. FINDINGS: 2 views: Cardiac pad in place. Heart size is normal. The mediastinum is not widened. Lungs are clear. No infiltrates nor pleural effusions. No pulmonary edema. No rib fractures. No pneumothorax. IMPRESSION: No acute pulmonary findings. Labs reviewed, signficant for slightly low mag, will replenish. He also reports high level of anxiety, has PRN ativan at home, will give dose here. He and his report that they have advance directives on file. Did review these. 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 When I discussed with patient and family, they report that this is an error, they want him to be DNR. However, given the limitation of his ADLS with the fatigue and SOB, he is interested in intervention such as pacemaker if that would help. Consulted with EP again, they advised that Mobitz 1, 1st degree, bigeminy and one nonconductive p wave. They do not feel that he needs intervention at this time. Will set up with [facility], EP advised that this is not necessarily necessary but given his sxs at home and that he is asymptomatic here, I do feel that this is appropriate. Discussed electrophysiology recommendation with the patient as well as their interpretation of the rhythm strips and EKG. Encourage close follow-up with primary care. He reports that he is due to see the social service manager as well. Strict return precautions were discussed. Referral for monitor was placed. All of their questions and concerns were addressed and they are in agreement this plan. Quality:SDOH Health Related Social Needs: No Data to Display PFSH All Active Problems (Updated 11/07/23 @ 14:06 by RODRICK Olivera) Hypomagnesemia (Acute) Bigeminal rhythm (Acute) AV block, Mobitz 1 (Acute) Fatigue (Acute) Atrioventricular block, first degree (Acute) Dyspnea on exertion (Acute) Low blood pressure (Acute) Right patella fracture (Acute ~09/09/23) Chondrocalcinosis of right knee (Acute) Steroid injection: 11/14/2022 Fatigue (Acute) BCC (basal cell carcinoma of skin) (Acute) 2021-lesion back, followed by Derm at [facility] Lyme disease (Acute) about 2018 assoc with arthritis-otherwise resolved, mild Thyroid nodule (Acute) 03/2021-multinodular thyroid large nodule, right lobe, FNA recommended Pharyngoesophageal dysphagia (Acute) Gait instability (Acute) Parkinson disease (Chronic) Hearing loss (Acute) Diabetes mellitus (Chronic 10/20/12) 06/2021-mild neuropathy of feet Essential hypertension (Chronic 03/19/13) Gout (Chronic) Kidney stone (Chronic) 4 episodes. 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 Last seen 03/2019 Hyperlipidemia (Chronic 10/20/12) Medical History Impairment of speech discrimination Sensorineural hearing loss, bilateral Impacted cerumen, bilateral Hx of Lyme disease Surgical History Hx of tonsillectomy H/O arthroscopy of knee Status post cataract extraction Boil States he had a boil tajen out of the left side of his neck. Family History Mother , AGE 89 Heart disease Father , AGE 68 Diabetes Essential hypertension Lung cancer Sister , AGE 65 Essential hypertension Hyperlipidemia Cancer Brother , AGE 66 Diabetes Hyperlipidemia Lung cancer Brother , age 88 Diabetes Heart disease Maternal Grandfather , age 69 No problems noted. Paternal Grandfather , AGE 73 No problems noted. Maternal Grandmother , age 71 No problems noted. Paternal Grandmother , AGE 78 Cancer Son Depression Son No problems noted. Son No problems noted. Social History Smoking/Tobacco Use Status: Never Second Hand Exposure: Yes Smoking risk assessment performed?: Yes Alcohol Intake: current Alcohol Intake frequency: a few times a month Alcohol type: beer Drug use: Never Substance use type: does not use Counseling provided: none Caregiver/Support person: No Household members: spouse Housing: house Communication Needs: None Do you need help understanding health information?: Rarely Pets and animals: No Sexually active: No Do you think of yourself as: straight/heterosexual Current gender identity: male What is your relationship status?: How often do you talk on the phone with friends or family?: twice per week How often do you get together with friends or relatives?: once per week How often do you attend hinduism or scientologist services?: decline to answer Do you belong to any clubs or organized social groups?: yes Panel score (0-1 are the most socially isolated patients): 3 What type of physical activity do you participate in: yoga Duration: 30-45 minutes/day Frequency: daily Jenny/Bahai: No preference Special jenny needs: No Seatbelt use: always Helmet use: No Drive intox or ride w/intox feeder driver: No Do you feel safe at home: Yes Do you feel safe in your relationship?: Yes
[2023-11-07 11:00] LABS: Abs Immature Grans 0.01 10^3/uL (0.0-0.06); Absolute Basophil Count 0.05 10^3/uL (0.0-0.2); Absolute Lymphocyte Count 2.93 10^3/uL (1.2-3.4); Absolute Monocyte Count 0.41 10^3/uL (0.1-0.8); Basophils % 0.7 %; Eosinophils % 2.7 %; HCT 39.8 % (40.0-50.0); HGB 13.5 g/dL (13.5-17.5); Immature Grans % 0.1 %; Lymphocytes % 39.6 %; MCH 30.1 pg (27.0-33.0); MCHC 33.9 % (32.0-36.0); MCV 89 fL (80-95); MPV 11.2 fL (8.0-11.0); Monocytes % 5.5 %; Neutrophils % 51.4 %; Platelet Count 178 10^3/uL (130-400); RBC 4.49 10^6/uL (4.36-5.78); RDW 12.5 % (11.8-14.1); RDW-SD 40.7 fL
[2023-11-07 11:17] LABS: ALT 16 U/L (16-63); AST 13 U/L (15-37); Albumin 3.9 g/dL (3.4-5.0); Alkaline Phosphatase 67 U/L (46-116); Anion Gap 8.7 mmol/L (3-11); BUN 23 mg/dL (7-18); Bilirubin, Total 0.7 mg/dL (0.2-1.0); CO2 27.3 mmol/L (21.0-32.0); CREATININE 1.2 mg/dL (0.70-1.30); Chloride 103 mmol/L (98-107); Estimated GFR 58.53 (mL/min/1.73m2); Glucose 196 mg/dL (74-106); Magnesium 1.6 mg/dL (1.8-2.4); Potassium 4.1 mmol/L (3.5-5.1); Sodium 139 mmol/L (136-145); Total Protein 6.9 g/dL (6.4-8.2); Troponin I < 50 ng/L (< or =60)
--- NOTE | 2023-11-07 11:29 | DI.RAD_ITS ---
Exam(s) XR CHEST 2V PA LATERAL EXAM: XR CHEST 2V PA LATERAL CLINICAL HISTORY: bradycardia. TECHNIQUE: 2D digital imaging was performed. COMPARISON: CR XR CHEST 2V PA LATERAL from 11/13/2022 FINDINGS: 2 views: Cardiac pad in place. Heart size is normal. The mediastinum is not widened. Lungs are clear. No infiltrates nor pleural effusions. No pulmonary edema. No rib fractures. No pneumothorax. IMPRESSION: No acute pulmonary findings. DATA REPOSITORY: RADIATION DOSE DELIVERED:
[2023-11-07] MEDS: Magnesium Oxide 400 MG TAB 800 MG PO (11:49)
[2023-11-07] MEDS: LORazepam 2 MG/ML VIAL 0.5 MG IVP (12:08)
[2023-11-07 14:57] LABS: TSH (W/Ref FT4) 3.37 uIU/mL (0.36-3.74)
[2023-11-10 11:24] LABS: Lyme Ab w Rflx to Lyme Confirm Negative (Negative)
[2023-11-10 19:39] LABS: Anaplasma phagocytophilum Negative (Negative); B. miyamotoi PCR Negative (Negative); Babesia divergens/MO-1 Negative (Negative); Babesia duncani Negative (Negative); Babesia microti Negative (Negative); Ehrlichia chaffeensis Negative (Negative); Ehrlichia ewingii/canis Negative (Negative); Ehrlichia muris eauclairensis Negative (Negative)
== END 2023-11-07 14:19 | disposition home or self-care (01) ==
PROVIDERS: Emergency Provider Physician Assistant; PCP Family Medicine
DX: I44.0 Atrioventricular block, first degree (principal); R00.8 Other abnormalities of heart beat; E83.42 Hypomagnesemia; A69.20 Lyme disease, unspecified; G20.C Parkinsonism, unspecified; E11.9 Type 2 diabetes mellitus without complications; I10 Essential (primary) hypertension; E78.5 Hyperlipidemia, unspecified; Z79.84 Long term (current) use of oral hypoglycemic drugs; Z79.4 Long term (current) use of insulin; Z79.899 Other long term (current) drug therapy
CPT/HCPCS: 36415; 80053; 87798; 93005; 96374; 99285; 71046; 83735; 84443; 84484; 85025; 86618; 93010; 99284; J2060

== ENCOUNTER 2023-11-13 09:49 | Outpatient (RCR) | payer MEDICARE, SELFPAY ==
--- NOTE | 2023-11-13 10:00 | HOLTER_ITS ---
APPROVED REPORT Conclusion This is a 48-hour Holter monitor Predominant rhythm was sinus with first-degree AV block. Average heart rate was 67. Minimum was 48, maximum 130 There were occasional atrial and ventricular ectopic beats Mobitz 1 second-degree AV block (Wenkebach) was seen. There was no high-grade AV block, no pauses gr eater than 3 seconds There was no atrial fibrillation, no SVT No cardiac symptoms were reported
== END 2023-11-23 23:59 | disposition home or self-care (01) ==
LOC: CARDOPNVT 09:49
PROVIDERS: PCP Family Medicine; Visit Provider Physician Assistant
DX: I44.0 Atrioventricular block, first degree (principal)
CPT/HCPCS: 93227; 93225; 93226

== ENCOUNTER 2023-11-25 08:06 | Outpatient (CLI) | payer MEDICARE, SELFPAY ==
--- NOTE | 2023-11-25 08:00 | RT.EKG_ITS ---
APPROVED REPORT Exam: Resting ECG Reason for Exam: hx of avb Patient Location: O HR:71 bpm ECG Measurements Heart Rate 71 AXIS IN 334 P -66 QRSd 95 QRS -52 QT 396 T 15 QTc 431 Conclusion Sinus or ectopic atrial rhythm...P axis (-45,135) Prolonged IN interval...IN >220, V-rate 50- 90 Inferior infarct, old...Q >35mS, II III aVF
== END 2023-11-25 08:07 | disposition home or self-care (01) ==
LOC: DI.CARD 08:07
PROVIDERS: PCP Family Medicine; Visit Provider Internal Medicine Cardiovascular Disease
DX: I44.0 Atrioventricular block, first degree (principal); I44.1 Atrioventricular block, second degree; I49.8 Other specified cardiac arrhythmias; I35.0 Nonrheumatic aortic (valve) stenosis
CPT/HCPCS: 93010

== ENCOUNTER → 2023-11-25 13:30 | Outpatient (BNVA) | payer MEDICARE, SELFPAY | PROVIDERS: PCP Family Medicine; Referring Provider Family Medicine; Visit Provider Internal Medicine Cardiovascular Disease | DX: I35.0 Nonrheumatic aortic (valve) stenosis (principal); I44.0 Atrioventricular block, first degree; I49.8 Other specified cardiac arrhythmias | CPT/HCPCS: 93005; 99213 ==

== ENCOUNTER → 2023-12-29 13:10 | Outpatient (BNVA) | payer MEDICARE, SELFPAY | PROVIDERS: PCP Family Medicine; Visit Provider Psychiatry & Neurology Neurology | DX: G20.C Parkinsonism, unspecified (principal); K59.00 Constipation, unspecified; R53.83 Other fatigue | CPT/HCPCS: 99214 ==

== ENCOUNTER 2024-03-30 13:58 | Outpatient (CLI) | payer MEDICARE, SELFPAY ==
--- NOTE | 2024-03-30 12:30 | DI.RAD_ITS ---
Exam(s) XR PELVIS W OBLIQUES 3V EXAM: XR PELVIS W OBLIQUES 3V CLINICAL HISTORY: s/p fall one week ago with left pelvic pain,[id number]. TECHNIQUE: 2D digital imaging was performed. Single AP view. 2D digital imaging was performed. Three views COMPARISON: No exams were available for comparison FINDINGS: BONES: No acute fracture is present. No bony destructive lesion is seen. Enthesophytes are present at the iliac wings and greater trochanters. JOINTS: No dislocation present. Bilateral acetabular spurring. No joint space narrowing is present. SI joints and pubic symphysis appear intact. SOFT TISSUE: Vascular calcifications. Right lower quadrant surgical clips. IMPRESSION: No acute abnormality. DATA REPOSITORY: RADIATION DOSE DELIVERED:
== END 2024-03-30 14:18 ==
LOC: DI 13:59
PROVIDERS: PCP Family Medicine; Visit Provider Family Medicine
DX: W19.XXXD Unspecified fall, subsequent encounter (principal); R10.2 Pelvic and perineal pain
CPT/HCPCS: 72190

== ENCOUNTER → 2024-05-03 13:21 | Outpatient (BNVA) | payer MEDICARE, SELFPAY | PROVIDERS: PCP Family Medicine; Referring Provider Family Medicine; Visit Provider Psychiatry & Neurology Neurology | DX: G20.C Parkinsonism, unspecified (principal); K59.00 Constipation, unspecified; R53.83 Other fatigue; F41.9 Anxiety disorder, unspecified | CPT/HCPCS: 99214 ==

== ENCOUNTER → 2024-06-01 13:34 | Outpatient (BNVA) | payer MEDICARE, SELFPAY | PROVIDERS: PCP Family Medicine; Visit Provider Internal Medicine Cardiovascular Disease | DX: I35.0 Nonrheumatic aortic (valve) stenosis (principal); I44.1 Atrioventricular block, second degree; I44.0 Atrioventricular block, first degree; I49.8 Other specified cardiac arrhythmias | CPT/HCPCS: 99214 ==

== ENCOUNTER → 2024-10-11 15:21 | Outpatient (BNVA) | payer MEDICARE, SELFPAY | PROVIDERS: PCP Family Medicine; Visit Provider Psychiatry & Neurology Neurology | DX: G20.C Parkinsonism, unspecified (principal); K59.00 Constipation, unspecified; R53.83 Other fatigue; F41.9 Anxiety disorder, unspecified; I10 Essential (primary) hypertension; E11.9 Type 2 diabetes mellitus without complications | CPT/HCPCS: 99214 ==

== ENCOUNTER 2024-11-24 13:49 | Outpatient (CLI) | payer MEDICARE, SELFPAY ==
[2024-11-24 13:52] LABS: Abs Immature Grans 0.02 10^3/uL (0.0-0.06); HCT 39.3 % (40.0-50.0); HGB 13.2 g/dL (13.5-17.5); Immature Grans % 0.3 %; MCH 29.8 pg (27.0-33.0); MCHC 33.6 % (32.0-36.0); MCV 89 fL (80-95); MPV 10.7 fL (8.0-11.0); Platelet Count 170 10^3/uL (130-400); RBC 4.43 10^6/uL (4.36-5.78); RDW 12.5 % (11.8-14.1); RDW-SD 41.0 fL; WBC 7.61 10^3/uL (4.4-10.8)
[2024-11-24 14:21] LABS: ALT 15 U/L (16-63); AST 16 U/L (15-37); Albumin 4.1 g/dL (3.4-5.0); Alkaline Phosphatase 58 U/L (46-116); Anion Gap 6.6 mmol/L (3-11); BUN 23 mg/dL (7-18); Bilirubin, Total 0.6 mg/dL (0.2-1.0); CO2 30.4 mmol/L (21.0-32.0); Calcium 9.2 mg/dL (8.5-10.1); Chloride 102 mmol/L (98-107); Estimated GFR 64.57 (mL/min/1.73m2); Glucose 223 mg/dL (74-106); Potassium 4.5 mmol/L (3.5-5.1); Sodium 139 mmol/L (136-145); Total Protein 6.8 g/dL (6.4-8.2)
== END 2024-11-24 13:50 | disposition home or self-care (01) ==
LOC: LBO 13:50
PROVIDERS: PCP Family Medicine; Visit Provider Family Medicine
DX: R10.9 Unspecified abdominal pain (principal); R63.4 Abnormal weight loss; D64.9 Anemia, unspecified
CPT/HCPCS: 36415; 80053; 85025

== ENCOUNTER → 2024-12-16 09:26 | Outpatient (BNVA) | payer MEDICARE, SELFPAY | PROVIDERS: PCP Family Medicine; Referring Provider Family Medicine; Visit Provider Internal Medicine Cardiovascular Disease | DX: I35.0 Nonrheumatic aortic (valve) stenosis (principal); R63.4 Abnormal weight loss; G20.C Parkinsonism, unspecified | CPT/HCPCS: 99214 ==

== ENCOUNTER 2025-01-05 03:51 | Outpatient (CLI) | payer MEDICARE, SELFPAY ==
[2025-01-05 09:59] LABS: Abs Immature Grans 0.02 10^3/uL (0.0-0.06); HCT 36.5 % (40.0-50.0); HGB 12.4 g/dL (13.5-17.5); Immature Grans % 0.3 %; MCH 30.2 pg (27.0-33.0); MCHC 34.0 % (32.0-36.0); MCV 89 fL (80-95); MPV 10.6 fL (8.0-11.0); Platelet Count 144 10^3/uL (130-400); RBC 4.10 10^6/uL (4.36-5.78); RDW 12.6 % (11.8-14.1); RDW-SD 41.2 fL; WBC 6.77 10^3/uL (4.4-10.8)
[2025-01-05 10:18] LABS: ALT 8 U/L (16-63); AST 12 U/L (15-37); Albumin 4.0 g/dL (3.4-5.0); Alkaline Phosphatase 52 U/L (46-116); Anion Gap 7.2 mmol/L (3-11); BUN 26 mg/dL (7-18); Bilirubin, Total 0.7 mg/dL (0.2-1.0); CO2 27.8 mmol/L (21.0-32.0); Calcium 8.9 mg/dL (8.5-10.1); Chloride 104 mmol/L (98-107); Estimated GFR 64.57 (mL/min/1.73m2); Glucose 225 mg/dL (74-106); LDH 125 U/L (85-227); Potassium 4.2 mmol/L (3.5-5.1); Sodium 139 mmol/L (136-145); Total Protein 6.5 g/dL (6.4-8.2)
== END 2025-01-05 03:52 | disposition home or self-care (01) ==
LOC: LBO 03:51
PROVIDERS: PCP Family Medicine; Visit Provider Nurse Practitioner Adult Health
DX: C85.80 Other specified types of non-Hodgkin lymphoma, unspecified site (principal)
CPT/HCPCS: 36415; 80053; 83615; 85025

== ENCOUNTER → 2025-03-17 09:14 | Outpatient (BNVA) | payer MEDICARE, SELFPAY | PROVIDERS: PCP Family Medicine; Referring Provider Family Medicine; Visit Provider Psychiatry & Neurology Neurology | DX: G20.C Parkinsonism, unspecified (principal); K59.00 Constipation, unspecified; R53.83 Other fatigue; F41.9 Anxiety disorder, unspecified; E11.59 Type 2 diabetes mellitus with other circulatory complications; I10 Essential (primary) hypertension | CPT/HCPCS: 99214 ==